=== PATIENT | male | born 1945 | race Caucasian/White ===

== ENCOUNTER 2018-10-26 17:30 | Emergency (ER) | payer MEDICARE, OTHER ==
[2018-10-26] MEDS ORDERED: Diltiazem 50 MG/10 ML SDV IVPUSH ONE ×2 (19:36→20:08)
--- NOTE | 2018-10-26 19:36 | EDM.PDOC ---
ED HPI GENERAL MEDICAL PROBLEM - General Chief Complaint: Respiratory Problem Stated Complaint: COUGHING AND RAPID HEART BEAT Time Seen by Provider: 10/26/18 19:20 Source of Information: Reports: Patient, RN Notes Reviewed - History of Present Illness INITIAL COMMENTS - FREE TEXT/NARRATIVE: 73 year old male had cough darrell more than 2 wks ago, treated with amoxicillin, finished that 3 days ago, he started getting ill again 2 days ago with increased frequent dry nonprod cough, chills, Zhou, increased nasal darrell. Was seen at [facility] today, CXR is reported to have been OK but was in a fib, fast heart rate, but I am also told did not take his rate control medication today. Multiple other family members are either currently ill with cough congestion or sore throat or have been ill in the past week or so. His is currently also ill with symptoms that just started 2 or 3 days ago. - Related Data Allergies Allergy/AdvReac Type Severity Reaction Status Date / Time No Known Allergies Allergy Verified 03/05/15 15:58 Home Meds: Home Meds amLODIPine [Norvasc] 5 mg PO DAILY 03/05/15 [History] Carvedilol [Coreg] 6.25 mg PO BID #60 tablet 03/07/15 [Rx] Aspirin 1 tab PO DAILY 10/26/18 [History] Past Medical History Cardiovascular History: Reports: Afib, Hypertension Other Gastrointestinal History: abdominal pain-chronic; Social & Family History - Family History Family Medical History: Noncontributory - Tobacco Use Smoking Status *Q: Unknown Ever Smoked - Caffeine Use Caffeine Use: Reports: Other - Recreational Drug Use Recreational Drug Use: No ED ROS GENERAL - Review of Systems Review Of Systems: See Below Constitutional: Reports: Chills. Denies: Fever HEENT: Reports: Rhinitis, Sinus Problem (Sinus congestion), Throat Pain Respiratory: Reports: Cough. Denies: Shortness of Breath (Mild), Wheezing Cardiovascular: Reports: Chest Pain (Frequent nonproductive with coughing) GI/Abdominal: Denies: Abdominal Pain, Nausea, Vomiting Musculoskeletal: Denies: Neck Pain, Shoulder Pain, Arm Pain Skin: Reports: No Symptoms Neurological: Reports: Headache (Mild). Denies: Numbness, Tingling, Trouble Speaking, Difficulty Walking, Weakness ED EXAM, GENERAL - Physical Exam Exam: See Below General Appearance: Alert, Other (Frequent nonproductive cough) Eye Exam: Bilateral Eye: PERRL Throat/Mouth: Normal Inspection Head: Atraumatic. No: Facial Swelling Neck: Supple, Full Range of Motion Respiratory/Chest: No Respiratory Distress, Lungs Clear, Normal Breath Sounds Cardiovascular: Tachycardia, Irregularly Irregular GI/Abdominal: Soft, Non-Tender Extremities: No: Pedal Edema, Leg Pain Neurological: Alert, Oriented, No Motor/Sensory Deficits Skin Exam: Warm, Dry, Normal Color, No Rash EKG INTERPRETATION EKG Date: 10/26/18 Rhythm: A-Fib Rate (Beats/Min): 141 [place]: Normal P-Wave: Absent QRS: Normal ST-T: Normal Course - Vital Signs Last Recorded V/S: Last Vital Signs Temp 98.6 F 10/26/18 18:01 Pulse 127 H 10/26/18 20:18 Resp 22 H 10/26/18 19:56 BP 156/102 H 10/26/18 20:18 Pulse Ox 94 L 10/26/18 19:56 - Orders/Labs/Meds Orders: Active Orders 24 hr Category Date Time Status EKG 12 Lead [EKG Documentation Completion] [RC] STAT Care 10/26/18 18:06 Active Labs: Laboratory Tests 10/26/18 10/26/18 Range/Units 18:16 18:16 WBC 8.05 (4.23-9.07) K/mm3 RBC 4.51 L (4.63-6.08) M/mm3 Hgb 14.2 (13.7-17.5) gm/L Hct 41.0 (40.1-51.0) % MCV 90.9 (79.0-92.2) fl MCH 31.5 (25.7-32.2) pg MCHC 34.6 (32.2-35.5) g/dl RDW Std Deviation 41.4 (35.1-43.9) fL Plt Count 171 (163-337) K/mm3 MPV 9.1 L (9.4-12.3) fl Neut % (Auto) 69.6 H (34.0-67.9) % Lymph % (Auto) 11.2 L (21.8-53.1) % [place] % (Auto) 16.9 H (5.3-12.2) % Eos % (Auto) 1.6 (0.8-7.0) Baso % (Auto) 0.6 (0.1-1.2) % Neut # (Auto) 5.60 H (1.78-5.38) K/mm3 Lymph # (Auto) 0.90 L (1.32-3.57) K/mm3 [place] # (Auto) 1.36 H (0.30-0.82) K/mm3 Eos # (Auto) 0.13 (0.04-0.54) K/mm3 Baso # (Auto) 0.05 (0.01-0.08) K/mm3 Manual Slide Review Normal smear Sodium 136 (136-145) mEq/L Potassium 3.4 L (3.5-5.1) mEq/L Chloride 101 (98-107) mEq/L Carbon Dioxide 25 (21-32) mEq/L Anion Gap 13.4 (5-15) BUN 13 (7-18) mg/dL Creatinine 0.9 (0.7-1.3) mg/dL Est Cr Clr Drug Dosing 80.15 mL/min Estimated GFR (MDRD) > 60 (>60) mL/min BUN/Creatinine Ratio 14.4 (14-18) Glucose 115 (83-115) mg/dL Calcium 8.3 L (8.5-10.1) mg/dL Total Bilirubin 1.1 H (0.2-1.0) mg/dL AST 35 (15-37) U/L ALT 28 (16-63) U/L Alkaline Phosphatase 52 (46-116) U/L Troponin I 0.023 (0.00-0.056) ng/mL Total Protein 7.8 (6.4-8.2) g/dl Albumin 3.5 (3.4-5.0) g/dl Globulin 4.3 gm/dL Albumin/Globulin Ratio 0.8 L (1-2) Meds: Medications Discontinued Medications Generic Name Dose Route Start Last Admin Trade Name Freq PRN Reason Stop Dose Admin Acetaminophen 975 mg 10/26/18 20:08 10/26/18 20:13 Tylenol PO 10/26/18 20:09 975 mg NOW ONE Administration Diltiazem HCl 20 mg 10/26/18 19:36 10/26/18 19:44 Cardizem IVPUSH 02/26/19 19:37 20 mg ONETIME ONE Administration Diltiazem HCl 20 mg 10/26/18 20:08 10/26/18 20:13 Cardizem IVPUSH 10/26/18 20:09 20 mg ONETIME ONE Administration - Re-Assessments/Exams Free Text/Narrative Re-Assessment/Exam: 10/27/18 05:25. Patient's influenza screen was negative. Labs were relatively normal. Troponin 0.0-3. He was seen in [facility] earlier today. Chest x-ray there was negative, we do have that report read by radiologist. 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 Not take his rate control medication yet today. Repeat was 135 at time of triage, in the low 120s at the time that I did see him. He him diltiazem 20 mg IV did bring his rate down with still running 110-120 so we did give a further 20 mg IV and that his rate down closer to the 100 range. Blood pressure remained good. He does take aspirin but no other blood thinner type therapy. He is medically okay to go home. His concern is the cough. I have prescribed some Phenergan with codeine that he can take to try help make that more tolerable to help him better rest. I've advised that he take his metoprolol when he does get home and that will help give him further rate control. Discharge instructions as documented. Departure - Departure Time of Disposition: 19:45 Disposition: Home, Self-Care 01 Condition: Fair Clinical Impression: Viral URI with cough - Discharge Information Instructions: Viral Respiratory Infection, [id number] Referrals: PCP,None [Primary Care Provider] - Forms: ED Department Discharge Additional Instructions: viral upper resp. infection, You have caught a new infection on top of what you had 2 wks ago, vaporizer or steam as needed. drink plenty of water to maintain hydration, tylenol 3 to 4 times daily, if needed for fever or discomfort, phenergan cough medication 2 tsp q 4 to 6 hr as needed for severe cough, take your coreg and norvasc tonight when you get home. Follow up [facility] tomorrow or for recheck. Continue daily aspirin, consider more powerful blood thinner if you remain in a Fib. - My Orders Last 24 Hours: My Active Orders 10/26/18 18:06 EKG 12 Lead [EKG Documentation Completion] [RC] STAT - Assessment/Plan Last 24 Hours: My Active Orders 10/26/18 18:06 EKG 12 Lead [EKG Documentation Completion] [RC] STAT
[2018-10-26] MEDS ORDERED: Acetaminophen 325 MG Tab PO ONE (20:08)
[2018-10-26 20:18] VITALS: BP 156/102
== END 2018-10-26 20:38 | disposition home or self-care (01) ==
LOC: JD.ED 17:30
DX: J06.9 Acute upper respiratory infection, unspecified (principal); I10 Essential (primary) hypertension; I48.91 Unspecified atrial fibrillation
CPT/HCPCS: 36415; 71046; 80053; 84484; 85025; 87804; 93005; 96374; 99285; A9270; J3490; 93010; 99284

== ENCOUNTER 2020-03-16 11:51 | Emergency (ER) | payer MEDICARE, OTHER ==
[2020-03-16 12:01] VITALS: PULSE 89
[2020-03-16] MEDS ORDERED: Sodium Chloride 0.9% 1,000 ML IV ONE (12:24)
[2020-03-16] MEDS ORDERED: Sodium Chloride 0.9% 10 ML Syringe FLUSH PRN (12:24)
[2020-03-16] MEDS ORDERED: Metoclopramide 10 MG/2 ML SDV IVPUSH ONE (12:24)
[2020-03-16] MEDS ORDERED: diphenhydrAMINE 50 MG/ML SDV IVPUSH ONE (12:24)
[2020-03-16] MEDS ORDERED: Ketorolac 30 MG/ML SDV IVPUSH ONE (12:24)
--- NOTE | 2020-03-16 12:32 | EDM.PDOC ---
ED HPI GENERAL MEDICAL PROBLEM - General Chief Complaint: Headache Stated Complaint: HEADACHE X4 DAYS Time Seen by Provider: 03/16/20 11:59 Source of Information: Reports: Patient, Family (), RN Notes Reviewed History Limitations: Reports: No Limitations - History of Present Illness INITIAL COMMENTS - FREE TEXT/NARRATIVE: Patient is a 74-year-old male who presents to the ED for evaluation of a right- sided temporal headache. Patient states that he has had this headach since Thursday. He has been trying aspirin, ibuprofen, and Aleve at home with his last dose of Aleve being at around 8 AM this morning.e patient states that he used to get headaches when he was younger, but has not had a bad headache in quite some time. He notes that the pain is on the right hemisphere of his face, mostly behind his eye. He does note that the other day he as well, he was having some right neck muscle stiffness, and also has been having some increased blood pressure readings at home. notes that his systolic blood pressures been in the 140s to 150s, but his diastolic has been in the upper 90s to low 100s. Patient does take amlodipine and Coreg for blood pressure issues, and multiple other vitamins. Otherwise he has not had any recent change in his medications. Patient notes that he has been staying hydrated and eating okay. He states that he is never had a headache before like this. He further denies any fever/chills, cough/shortness of breath, nausea/vomiting/diarrhea. He has not been around any known sick contacts. He further denies any blurry vision/double vision, or any light or sound sensitivity with this as well. Right Headache Pain Score (Numeric/FACES): 9 - Related Data Allergies Allergy/AdvReac Type Severity Reaction Status Date / Time No Known Allergies Allergy Verified 03/16/20 12:01 Home Meds: Home Meds amLODIPine [Norvasc] 5 mg PO DAILY 03/05/15 [History] Carvedilol [Coreg] 6.25 mg PO BID #60 tablet 03/07/15 [Rx] Aspirin 81 mg PO DAILY 10/26/18 [History] Cod Liver Oil 1 cap PO DAILY 03/16/20 [History] Magnesium 600 mg PO DAILY 03/16/20 [History] Naproxen [Naprosyn] 500 mg PO Q12HR #20 tab 03/16/20 [Rx] Orphenadrine [Norflex] 100 mg PO BID PRN #20 tab 03/16/20 [Rx] Selenium 1 cap PO DAILY 03/16/20 [History] Ubidecarenone [Co Q-10] 300 mg PO DAILY 03/16/20 [History] Vitamin A 1 cap PO DAILY 03/16/20 [History] Vitamin B Complex 125 mg PO DAILY 03/16/20 [History] Vitamin E 1,000 units PO DAILY 03/16/20 [History] Zinc 50 mg PO DAILY 03/16/20 [History] Past Medical History Cardiovascular History: Reports: Afib, Hypertension Gastrointestinal History: Reports: Other (See Below) Other Gastrointestinal History: abdominal pain-chronic; Neurological History: Reports: Headaches, Chronic Endocrine/Metabolic History: Reports: Other (See Below) Other Endocrine/Metabolic History: pre diabetic - Past Surgical History HEENT Surgical History: Reports: Cataract Surgery, Tonsillectomy GI Surgical History: Reports: Appendectomy Social & Family History - Family History Family Medical History: Noncontributory - Tobacco Use Smoking Status *Q: Never Smoker - Caffeine Use Caffeine Use: Reports: None - Recreational Drug Use Recreational Drug Use: No ED ROS GENERAL - Review of Systems Review Of Systems: Comprehensive ROS is negative, except as noted in HPI. - Physical Exam Exam: See Below Exam Limited By: No Limitations General Appearance: Alert, WD/WN, No Apparent Distress Eye Exam: Bilateral Eye: EOMI, Normal Inspection, PERRL Ears: Normal External Exam Nose: Normal Inspection Throat/Mouth: Normal Inspection, Normal Lips, Normal Teeth, Normal Gums, Normal Oropharynx, Normal Voice, No Airway Compromise Head Exam: Atraumatic, Normocephalic Neck: Normal Inspection, Supple, Full Range of Motion, Tender Lateral (there seems to be some muscle tightness in the R posterior neck area, states that the headache worsens when he turns head to the right only) Respiratory/Chest: No Respiratory Distress, Lungs Clear, Normal Breath Sounds, No Accessory Muscle Use, Chest Non-Tender Cardiovascular: Normal Peripheral Pulses, Regular Rate, Rhythm, No Murmur GI/Abdominal: Normal Bowel Sounds, Soft, Non-Tender, No Distention, No Mass Neuro Exam (Abbreviated): Alert, Oriented, Normal Cognition, No Motor/Sensory Deficits Extremities: Normal Inspection, Normal Capillary Refill Psychiatric: Normal Affect, Normal Mood Skin Exam: Warm, Dry, Intact, Normal Color, No Rash Course - Vital Signs Last Recorded V/S: Last Vital Signs Temp 97.5 F 03/16/20 11:58 Pulse 89 03/16/20 11:58 Resp 18 03/16/20 11:58 BP 136/88 03/16/20 13:30 Pulse Ox 94 L 03/16/20 11:58 - Orders/Labs/Meds Orders: Active Orders 24 hr Category Date Time Status Peripheral IV Care [RC] . DIRECTED Care 03/16/20 12:24 Active Sodium Chloride 0.9% [Saline Flush] Med 03/16/20 12:24 Active 10 ml FLUSH ASDIRECTED PRN Peripheral IV Insertion Adult [OM.PC] Routine Oth 03/16/20 12:24 Ordered Medication Orders Sodium Chloride (Saline Flush) 10 ml FLUSH ASDIRECTED PRN PRN Reason: Keep Vein Open Last Admin: 03/16/20 12:36 Dose: 10 ml Documented by: MASTER Labs: Laboratory Tests 03/16/20 03/16/20 Range/Units 12:30 12:30 WBC 7.87 (4.23-9.07) K/mm3 RBC 4.48 L (4.63-6.08) M/mm3 Hgb 14.2 (13.7-17.5) gm/dl Hct 41.6 (40.1-51.0) % MCV 92.9 H (79.0-92.2) fl MCH 31.7 (25.7-32.2) pg MCHC 34.1 (32.2-35.5) g/dl RDW Std Deviation 43.4 (35.1-43.9) fL Plt Count 168 (163-337) K/mm3 MPV 9.5 (9.4-12.3) fl Neut % (Auto) 63.0 (34.0-67.9) % Lymph % (Auto) 21.6 L (21.8-53.1) % [place] % (Auto) 13.0 H (5.3-12.2) % Eos % (Auto) 1.8 (0.8-7.0) Baso % (Auto) 0.5 (0.1-1.2) % Neut # (Auto) 4.96 (1.78-5.38) K/mm3 Lymph # (Auto) 1.70 (1.32-3.57) K/mm3 [place] # (Auto) 1.02 H (0.30-0.82) K/mm3 Eos # (Auto) 0.14 (0.04-0.54) K/mm3 Baso # (Auto) 0.04 (0.01-0.08) K/mm3 Sodium 143 (136-145) mEq/L Potassium 4.0 (3.5-5.1) mEq/L Chloride 106 (98-107) mEq/L Carbon Dioxide 27 (21-32) mEq/L Anion Gap 14.0 (5-15) BUN 15 (7-18) mg/dL Creatinine 0.9 (0.7-1.3) mg/dL Est Cr Clr Drug Dosing 81.19 mL/min Estimated GFR (MDRD) > 60 (>60) mL/min BUN/Creatinine Ratio 16.7 (14-18) Glucose 252 H (83-115) mg/dL Calcium 8.7 (8.5-10.1) mg/dL Total Bilirubin 0.7 (0.2-1.0) mg/dL AST 36 (15-37) U/L ALT 24 (16-63) U/L Alkaline Phosphatase 57 (46-116) U/L Total Protein 7.4 (6.4-8.2) g/dl Albumin 3.2 L (3.4-5.0) g/dl Globulin 4.2 gm/dL Albumin/Globulin Ratio 0.8 L (1-2) Meds: Medications Generic Name Dose Route Start Last Admin Trade Name Freq PRN Reason Stop Dose Admin Sodium Chloride 10 ml 03/16/20 12:24 03/16/20 12:36 Saline Flush FLUSH 10 ml ASDIRECTED PRN Administration Keep Vein Open Discontinued Medications Generic Name Dose Route Start Last Admin Trade Name Freq PRN Reason Stop Dose Admin Diphenhydramine HCl 25 mg 03/16/20 12:24 03/16/20 12:34 Benadryl IVPUSH 03/16/20 12:25 25 mg ONETIME ONE Administration Sodium Chloride 1,000 mls @ 999 mls/hr 03/16/20 12:24 03/16/20 12:39 Normal Saline IV 03/16/20 13:24 999 mls/hr ASDIRECTED ONE Administration Ketorolac Tromethamine 30 mg 03/16/20 12:24 03/16/20 12:36 Toradol IVPUSH 03/16/20 12:25 30 mg ONETIME ONE Administration Metoclopramide HCl 10 mg 03/16/20 12:24 03/16/20 12:36 Reglan IVPUSH 03/16/20 12:25 10 mg ONETIME ONE Administration - Re-Assessments/Exams Free Text/Narrative Re-Assessment/Exam: 03/16/20 12:31 Patient presents to the ED for evaluation of his right-sided headache. Suspect may be more tension headache or blood pressure related. Will monitor blood pressure in the ER. His blood pressure after he had been sitting in the ER for a little while, is 147/98, which is essentially normal. However will get CBC, CMP, and given some medications to help relieve the headache see if this helps, along with some IV fluids. Will entertain imaging if the headache does not seem to relent with the medications. 03/16/20 13:41 Laboratory evaluation demonstrates no focal abnormalities except the patient's blood sugar is a little bit elevated at 252. Patient is feeling a little bit better, states that his headache has relented. I do again believe this is more musculoskeletal in etiology, but the family and patient are requesting a head CT to be done to rule out further abnormalities. I did go over the risks/benefits ratio with the family and they would wish to proceed. I did order this at this time. 03/16/20 14:[address] has been performed, there are no acute abnormalities, there is chronic left-sided maxillary sinus issues. Will make the patient and aware of this, will discharge home with general recommendations. Departure - Departure Time of Disposition: 13:46 Disposition: Home, Self-Care 01 Condition: Good Clinical Impression: Tension-type headache, Elevated blood pressure reading in office with diagnosis of hypertension, Elevated blood sugar level Strain of neck muscle Qualifiers: Encounter type: initial encounter Qualified Code(s): S16.1XXA - Strain of muscle, fascia and tendon at neck level, initial encounter - Discharge Information *PRESCRIPTION DRUG MONITORING PROGRAM REVIEWED*: No *COPY OF PRESCRIPTION DRUG MONITORING REPORT IN PATIENT MICHAEL: No Prescriptions: Orphenadrine [Norflex] 100 mg PO BID PRN #20 tab PRN Reason: Spasms Instructions: Preventing Type 2 Diabetes Mellitus, Tension Headache, Adult, [id number] Referrals: PCP,None [Primary Care Provider] - Forms: ED Department Discharge Additional Instructions: You were evaluated in the ED for your headache. You were given a combination of medications and IV fluid for management. This did seem to provide you pretty good relief of your symptoms. You did also have a head CT performed at today's visit, and this was within normal limits. Recommend that you go home and rest in a quiet, darkened room. Try also to keep well hydrated. Your blood pressure readings did return to within normal limits while in the ER, please continue to monitor these and discuss with your regular provider about further management. Recommend that you keep tabs on your blood sugar as well, as it was a little elevated at today's visit. You were given a handout on how to try to prevent Diabetes. You were given a muscle relaxer for suspected neck muscle strain that would be the cause of your ongoing headache. Please take as directed, along with 1 tab Naprosyn Q12H. Please return to the ED if your symptoms should change or worsen. Sepsis Event Note (ED) - Evaluation Sepsis Screening Result: No Definite Risk - Focused Exam Vital Signs: Vital Signs Temp Pulse Resp BP Pulse Ox 03/16/20 13:30 136/88 03/16/20 11:58 97.5 F 89 18 169/101 H 94 L - My Orders Last 24 Hours: My Active Orders 03/16/20 12:24 Peripheral IV Care [RC] . DIRECTED Sodium Chloride 0.9% [Saline Flush] 10 ml FLUSH ASDIRECTED PRN Peripheral IV Insertion Adult [OM.PC] Routine - Assessment/Plan Last 24 Hours: My Active Orders 03/16/20 12:24 Peripheral IV Care [RC] . DIRECTED Sodium Chloride 0.9% [Saline Flush] 10 ml FLUSH ASDIRECTED PRN Peripheral IV Insertion Adult [OM.PC] Routine
[2020-03-16 13:41] VITALS: BP 136/88
--- NOTE | 2020-03-16 14:22 | CT ---
Head CT Technique: Multiple axial sections through the brain were obtained. Intervenous contrast was not utilized. Comparison: No prior intracranial imaging is available. Findings: Ventricles along with basal cisterns and sulci over the convexities are within normal limits for the patient's age. Opacified left maxillary sinus is seen. Other visualized paranasal sinuses are clear. Bone window settings were reviewed which shows no acute calvarial abnormality. Visualized mastoid sinuses show nothing acute. Impression: 1. Nothing acute is appreciated on noncontrast head CT exam. 2. Opacified left maxillary sinus which is most likely chronic. Diagnostic code #2 This report was dictated in MDT
== END 2020-03-16 14:39 | disposition home or self-care (01) ==
LOC: JD.ED 11:51
DX: S16.1XXA Strain of muscle, fascia and tendon at neck level, initial encounter (principal); G44.209 Tension-type headache, unspecified, not intractable; I10 Essential (primary) hypertension; R73.9 Hyperglycemia, unspecified; I48.91 Unspecified atrial fibrillation; Z79.82 Long term (current) use of aspirin; Z79.899 Other long term (current) drug therapy; X58.XXXA Exposure to other specified factors, initial encounter
CPT/HCPCS: 36415; 70450; 80053; 85025; 96374; 96375; 99284; J1200; J1885; J2765; J7030

== ENCOUNTER 2020-06-01 09:15 | Emergency (ER) | payer MEDICARE, OTHER ==
--- NOTE | 2020-06-01 09:38 | EDM.PDOC ---
ED HPI GENERAL MEDICAL PROBLEM - General Chief Complaint: Abdominal Pain Stated Complaint: RT SIDE PAIN Time Seen by Provider: 06/01/20 09:31 Source of Information: Reports: Patient History Limitations: Reports: No Limitations - History of Present Illness INITIAL COMMENTS - FREE TEXT/NARRATIVE: 74-year-old male presents to the ED with complaints of right sided abdominal pain for the last 2 days. No known injuries. Pain is made worse by deep breathing coughing and certain movements. He is better if he lies perfectly still. States bowel movements have been normal. No diarrhea. He has had previous laparoscopic appendectomy 20 years ago. He developed umbilical hernia superior to the laparoscopic wounds within the year after surgery. Does not feel distended or bloated. He had a heating pad on his abdomen most of last night to get a bit of sleep. Pain occasionally is very sharp and stabbing. Associated nausea vomiting fever or chills. Reports she is been coughing for several weeks. He coughs hard enough that he nearly vomits at times. This would be a reason for acute abdominal wall strain in the external oblique muscles. Onset: Gradual Onset Date: 05/30/20 Duration: Day(s):, Constant, Getting Worse (Perhaps a little worse now than it was but yet 2 days ago.) Location: Reports: Abdomen (Lateral mid abdomen. Patient is able to localize it very well.) Quality: Reports: Ache, Sharp, Stabbing Severity: Moderate Improves with: Reports: Rest Worsens with: Reports: Movement (Pain is made worse by movement coughing deep breathing or sneezing.) Context: Denies: Activity, Exercise, Lifting, Sick Contact, Trauma, Other Associated Symptoms: Reports: Malaise. Denies: Confusion, Fever/Chills, Headaches, Loss of Appetite, Nausea/Vomiting, Rash, Seizure (Not sleeping.), Shortness of Breath, Syncope, Weakness Treatments [employer]: Reports: Other (see below) (None.) Right Abdominal Pain Score (Numeric/FACES): 10 - Related Data Allergies Allergy/AdvReac Type Severity Reaction Status Date / Time amoxicillin [From Augmentin] Allergy Severe Other Verified 06/01/20 09:31 clavulanic acid Allergy Severe Other Verified 06/01/20 09:31 [From Augmentin] Home Meds: Home Meds amLODIPine [Norvasc] 5 mg PO DAILY 07/06/15 [History] Carvedilol [Coreg] 6.25 mg PO BID #60 tablet 03/07/15 [Rx] Aspirin 81 mg PO DAILY 10/26/18 [History] Cod Liver Oil 1 cap PO DAILY 03/16/20 [History] Magnesium 600 mg PO DAILY 03/16/20 [History] Naproxen [Naprosyn] 500 mg PO Q12HR #20 tab 03/16/20 [Rx] Orphenadrine [Norflex] 100 mg PO BID PRN #20 tab 03/16/20 [Rx] Selenium 1 cap PO DAILY 03/16/20 [History] Ubidecarenone [Co Q-10] 300 mg PO DAILY 03/16/20 [History] Vitamin A 1 cap PO DAILY 03/16/20 [History] Vitamin B Complex 125 mg PO DAILY 03/16/20 [History] Vitamin E 1,000 units PO DAILY 03/16/20 [History] Zinc 50 mg PO DAILY 03/16/20 [History] Hydrocodone/Chlorphen P-Stirex [Hydrocodone-Chlorphen ER Susp] 5 ml PO Q12H PRN #60 ml 06/01/20 [Rx] levoFLOXacin [Levaquin] 500 mg PO DAILY #8 tab 06/01/20 [Rx] oxyCODONE HCl/Acetaminophen [Percocet 5-325 mg Tablet] 1 - 2 each PO Q6H PRN #16 tablet 06/01/20 [Rx] Past Medical History Cardiovascular History: Reports: Afib (Rate controlled with carvedilol. Not on anticoagulants.), Hypertension Gastrointestinal History: Reports: Other (See Below) Other Gastrointestinal History: abdominal pain-chronic; Neurological History: Reports: Headaches, Chronic Endocrine/Metabolic History: Reports: Other (See Below) Other Endocrine/Metabolic History: pre diabetic - Past Surgical History HEENT Surgical History: Reports: Cataract Surgery, Tonsillectomy GI Surgical History: Reports: Appendectomy Social & Family History - Family History Family Medical History: Noncontributory - Caffeine Use Caffeine Use: Reports: None - Living Situation & Occupation Living situation: Reports: Occupation: Employed (Self-employed) [facility] - Review of Systems Review Of Systems: See Below Constitutional: Reports: Malaise. Denies: Fever, Chills, Weakness, Fatigue (Lack of sleep.), Decreased Appetite, Weight Loss HEENT: Reports: Glasses Respiratory: Reports: Cough. Denies: Shortness of Breath, Wheezing, Pleuritic Chest Pain, Sputum, Hemoptysis (Occasional nonproductive cough) Cardiovascular: Reports: Blood Pressure Problem, Palpitations (Chronic atrial fib). Denies: Chest Pain, Claudication, Dyspnea on Exertion, Edema, Lightheadedness, Orthopnea (Chronic hypertension) Endocrine: Reports: Fatigue GI/Abdominal: Reports: Abdominal Pain (See history of present illness.). Denies: Constipation, Diarrhea, Decreased Appetite, Distension, Flatus, Hematemesis, Nausea, Stool Incontinence, Vomiting : Reports: No Symptoms Musculoskeletal: Reports: No Symptoms Skin: Reports: No Symptoms Neurological: Reports: No Symptoms Psychiatric: Reports: No Symptoms Hematologic/Lymphatic: Reports: No Symptoms Immunologic: Reports: No Symptoms ED EXAM, GI/ABD - Physical Exam Exam: See Below Exam Limited By: No Limitations General Appearance: Alert, WD/WN, No Apparent Distress, Other (Temperature is 36.1 with a heart rate of 90. Respiratory is 18 with sats of 96% room air. BP 1 3895.) Eyes: Bilateral: Normal Appearance Throat/Mouth: Normal Inspection (No scleral icterus or blepharal pallor.), Normal Lips, Normal Oropharynx Head: Atraumatic, Normocephalic Neck: Normal Inspection, Supple, Non-Tender, Full Range of Motion. No: Lymphadenopathy (L), Lymphadenopathy (R) Respiratory/Chest: No Respiratory Distress, Lungs Clear, Normal Breath Sounds, No Accessory Muscle Use Cardiovascular: Normal Peripheral Pulses, No Edema, No Gallop, No JVD, No Murmur, No Rub, Irregularly Irregular (Heart rate is irregular irregular compatible with atrial fibrillation with a heart rate of 90/min on average.) GI/Abdominal Exam: Tender (Able to localize an area of tenderness in the mid axillary line and anterior axillary line mid abdomen just below the costal margin. Clinically the pain appears to be superficial and likely coming from the abdominal wall. Patient has 2 umbilical hernias superior to previous laparoscopic wound. They are reducible.), Abnormal Bowel Sounds (Bowel sounds are hyperactive in all 4 quadrants.), Other (It appears distended and firm.). No: Distended (No tympany on percussion.), Guarding, Rigid, Rebound Back Exam: Normal Inspection, Full Range of Motion. No: CVA Tenderness (L), CVA Tenderness (R) Extremities: Normal Inspection, Normal Range of Motion, Non-Tender, No Pedal Edema Neurological: Alert, Oriented, CN II-XII Intact, Normal Cognition Psychiatric: Normal Affect, Normal Mood Skin Exam: Warm, Dry, Intact, Normal Color, Erythema (She has mild scattered erythema right lateral abdominal wall 40s at the heating pad or overnight. Indicates that he is got some superficial mascorro to the abdominal wall. No bli sters.) Course - Vital Signs Last Recorded V/S: Last Vital Signs Temp 36.1 C 06/01/20 09:26 Pulse 90 06/01/20 09:26 Resp 18 06/01/20 09:26 BP 138/95 H 06/01/20 09:26 Pulse Ox 96 06/01/20 09:26 - Orders/Labs/Meds Orders: Active Orders 24 hr Category Date Time Status Abdomen 1V Flat [CR] Stat Exams 06/01/20 09:39 Taken Abdomen Pelvis w Cont [CT] Stat Exams 06/01/20 10:21 Taken Sodium Chloride 0.9% [Normal Saline] 1,000 ml Med 06/01/20 10:30 Active IV ASDIRECTED Sodium Chloride 0.9% [Saline Flush] Med 06/01/20 10:49 Active 10 ml FLUSH ONETIME PRN cefTRIAXone [Rocephin] 2 gm Med 06/01/20 14:15 Active Sodium Chloride 0.9% [Normal Saline] 100 ml IV Q24H Medication Orders Sodium Chloride (Normal Saline) 1,000 mls @ 150 mls/hr IV ASDIRECTED ALEJO Last Admin: 06/01/20 11:25 Dose: 150 mls/hr Documented by: PURNIMA Ceftriaxone Sodium 2 gm/ (Sodium Chloride) 100 mls @ 200 mls/hr IV Q24H ALEJO Last Admin: 06/01/20 14:15 Dose: 200 mls/hr Documented by: PURNIMA Sodium Chloride (Saline Flush) 10 ml FLUSH ONETIME PRN PRN Reason: IV FLUSH Last Admin: 06/01/20 11:40 Dose: 10 ml Documented by: BETSY Labs: Laboratory Tests 06/01/20 06/01/20 06/01/20 Range/Units 09:30 09:30 09:30 WBC 8.56 (4.23-9.07) K/mm3 RBC 4.68 (4.63-6.08) M/mm3 Hgb 14.7 (13.7-17.5) gm/dl Hct 42.8 (40.1-51.0) % MCV 91.5 (79.0-92.2) fl MCH 31.4 (25.7-32.2) pg MCHC 34.3 (32.2-35.5) g/dl RDW Std Deviation 43.6 (35.1-43.9) fL Plt Count 200 (163-337) K/mm3 MPV 9.7 (9.4-12.3) fl Neut % (Auto) 67.3 (34.0-67.9) % Lymph % (Auto) 18.7 L (21.8-53.1) % [place] % (Auto) 11.9 (5.3-12.2) % Eos % (Auto) 1.6 (0.8-7.0) Baso % (Auto) 0.4 (0.1-1.2) % Neut # (Auto) 5.76 H (1.78-5.38) K/mm3 Lymph # (Auto) 1.60 (1.32-3.57) K/mm3 [place] # (Auto) 1.02 H (0.30-0.82) K/mm3 Eos # (Auto) 0.14 (0.04-0.54) K/mm3 Baso # (Auto) 0.03 (0.01-0.08) K/mm3 Sodium 137 (136-145) mEq/L Potassium 4.1 (3.5-5.1) mEq/L Chloride 102 (98-107) mEq/L Carbon Dioxide 26 (21-32) mEq/L Anion Gap 13.1 (5-15) BUN 16 (7-18) mg/dL Creatinine 1.0 (0.7-1.3) mg/dL Est Cr Clr Drug Dosing 71.02 mL/min Estimated GFR (MDRD) > 60 (>60) mL/min BUN/Creatinine Ratio 16.0 (14-18) Glucose 163 H (83-115) mg/dL Calcium 8.6 (8.5-10.1) mg/dL Total Bilirubin 1.6 H (0.2-1.0) mg/dL AST 50 H (15-37) U/L ALT 27 (16-63) U/L Alkaline Phosphatase 59 (46-116) U/L C-Reactive Protein 2.9 H* (<1.0) mg/dL Total Protein 8.1 (6.4-8.2) g/dl Albumin 3.6 (3.4-5.0) g/dl Globulin 4.5 gm/dL Albumin/Globulin Ratio 0.8 L (1-2) Lipase 65 L (73-393) U/L Urine Color (Yellow) Urine Appearance (Clear) Urine pH (5.0-8.0) Ur Specific [place] (1.005-1.030) Urine Protein (Negative) Urine Glucose (UA) (Negative) Urine Ketones (Negative) Urine Occult Blood (Negative) Urine Nitrite (Negative) Urine Bilirubin (Negative) Urine Urobilinogen (0.2-1.0) Ur Leukocyte Esterase (Negative) 06/01/20 Range/Units 13:50 WBC (4.23-9.07) K/mm3 RBC (4.63-6.08) M/mm3 Hgb (13.7-17.5) gm/dl Hct (40.1-51.0) % MCV (79.0-92.2) fl MCH (25.7-32.2) pg MCHC (32.2-35.5) g/dl RDW Std Deviation (35.1-43.9) fL Plt Count (163-337) K/mm3 MPV (9.4-12.3) fl Neut % (Auto) (34.0-67.9) % Lymph % (Auto) (21.8-53.1) % [place] % (Auto) (5.3-12.2) % Eos % (Auto) (0.8-7.0) Baso % (Auto) (0.1-1.2) % Neut # (Auto) (1.78-5.38) K/mm3 Lymph # (Auto) (1.32-3.57) K/mm3 [place] # (Auto) (0.30-0.82) K/mm3 Eos # (Auto) (0.04-0.54) K/mm3 Baso # (Auto) (0.01-0.08) K/mm3 Sodium (136-145) mEq/L Potassium (3.5-5.1) mEq/L Chloride (98-107) mEq/L Carbon Dioxide (21-32) mEq/L Anion Gap (5-15) BUN (7-18) mg/dL Creatinine (0.7-1.3) mg/dL Est Cr Clr Drug Dosing mL/min Estimated GFR (MDRD) (>60) mL/min BUN/Creatinine Ratio (14-18) Glucose (83-115) mg/dL Calcium (8.5-10.1) mg/dL Total Bilirubin (0.2-1.0) mg/dL AST (15-37) U/L ALT (16-63) U/L Alkaline Phosphatase (46-116) U/L C-Reactive Protein (<1.0) mg/dL Total Protein (6.4-8.2) g/dl Albumin (3.4-5.0) g/dl Globulin gm/dL Albumin/Globulin Ratio (1-2) Lipase (73-393) U/L Urine Color Yellow (Yellow) Urine Appearance Clear (Clear) Urine pH 7.0 (5.0-8.0) Ur Specific [place] 1.015 (1.005-1.030) Urine Protein Negative (Negative) Urine Glucose (UA) Negative (Negative) Urine Ketones Negative (Negative) Urine Occult Blood Negative (Negative) Urine Nitrite Negative (Negative) Urine Bilirubin Negative (Negative) Urine Urobilinogen 0.2 (0.2-1.0) Ur Leukocyte Esterase Negative (Negative) Meds: Medications Generic Name Dose Route Start Last Admin Trade Name Freq PRN Reason Stop Dose Admin Sodium Chloride 1,000 mls @ 150 mls/hr 06/01/20 10:30 06/01/20 11:25 Normal Saline IV 150 mls/hr ASDIRECTED ALEJO Administration Ceftriaxone Sodium 2 gm/ 100 mls @ 200 mls/hr 06/01/20 14:15 06/01/20 14:15 Sodium Chloride IV 200 mls/hr Q24H ALEJO Administration Sodium Chloride 10 ml 06/01/20 10:49 06/01/20 11:40 Saline Flush FLUSH 10 ml ONETIME PRN Administration IV FLUSH Discontinued Medications Generic Name Dose Route Start Last Admin Trade Name Freq PRN Reason Stop Dose Admin Diatrizoate Meglum/Diatrizoate Sod 120 ml 06/01/20 10:49 06/01/20 11:39 Gastrografin 37% PO 06/01/20 10:50 120 ml ONETIME ONE Administration Hydromorphone HCl 0.5 mg 06/01/20 09:42 06/01/20 11:30 Dilaudid IVPUSH 06/01/20 09:43 Not Given ONETIME ONE Hydromorphone HCl 0.5 mg 06/01/20 15:19 06/01/20 15:26 Dilaudid IVPUSH 06/01/20 15:20 0.5 mg ONETIME ONE Administration Ceftriaxone Sodium 2 gm/ 100 mls @ 200 mls/hr 06/01/20 13:58 06/01/20 14:05 Sodium Chloride IV 06/01/20 14:27 Not Given ONETIME ONE Iopamidol 100 ml 06/01/20 10:49 06/01/20 11:39 Isovue-300 (61%) IVPUSH 06/01/20 10:50 100 ml ONETIME ONE Administration Iopamidol 50 ml 06/01/20 10:49 06/01/20 11:39 Isovue-300 (61%) IVPUSH 06/01/20 10:50 50 ml ONETIME ONE Administration Ondansetron HCl 4 mg 06/01/20 09:42 06/01/20 11:30 Zofran IVPUSH 06/01/20 09:43 Not Given ONETIME ONE Ondansetron HCl 4 mg 06/01/20 15:19 06/01/20 15:29 Zofran IVPUSH 06/01/20 15:20 4 mg ONETIME ONE Administration - Radiology Interpretation Free Text/Narrative:: 74-year-old male presents to the ED with constant right obed-abdominal pain which he is able to localize very well. No known injuries. No fever or chills. Normal bowel movements. Examination reveals a very taut abdominal wall. Able to localize tenderness very well to the mid axillary and anterior axillary line right lateral abdominal wall just below the costal margin. Pain peers to be coming from the abdominal wall on exam. Bowel sounds however much more active than normal. He has 2 umbilical hernias that are easily reducible. Pain seems to be significant as he states he hard to get any sleep last night as was quite sharp and stabbing pain all night long. He had a heating pad on the area and was able to get perhaps an hour of sleep. Examination reveals bowel sounds very active in all 4 quadrants. No tympany on percussion. Tenderness elicited with light palpation suggesting it is coming from the abdominal wall mid axillary and anterior axillary line mid abdomen. No rash to support diagnosis of shingles at this time. Story of severe paroxysmal cough for several weeks. Coughs to the point of near emesis. This would be a reason for abdominal wall muscle tear/strain. Plan routine labs will be obtained including CRP. He will be given Dilaudid 0.5 mg IV with Zofran 4 mg IV for pain relief. KUB to be obtained. - Re-Assessments/Exams Free Text/Narrative Re-Assessment/Exam: 06/01/20 10:12 KUB reveals increased stool throughout the right hemicolon and portions of the descending colon. There is an air-filled transverse colon. There is 1 loop of nonspecific dilated bowel right lower quadrant with no signs of bowel obstruction. 06/01/20 10:14 Labs reveal a normal white count at 8.56 with 67% neutrophils. Lymphocyte count is slightly low at 18.7. Hemoglobin is 14.7 with hematocrit of 42.8 and platelet count normal at 200,000. Sodium 137 potassium 4.1. Chloride 102 with a bicarb 26. Anion gap is 13.1. BUN is 16 with a creatinine of 1.0 and a GFR greater than 60. Glucose 163 calcium 8.6 total bilirubin 1.6 with an AST of 50. ALT is 27 . Alk phosphatase normal at 59. No sign of biliary tree obstruction. C-reactive protein mildly elevated at 2.9. Total protein 8.1. No signs of biliary tree obstruction. 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 06/01/20 10:24 Due to the elevated C-reactive protein and persistence of pain. I will pursue CT of the abdomen/pelvis with oral and IV contrast. 06/01/20 12:08 CT of the abdomen and pelvis has been completed with IV and oral contrast. Visualized portions of the lung bases show bibasilar atelectasis slightly worse on the right side as compared to the left. Mild cardiomegaly is present. In the abdomen the liver is mildly enlarged with evidence of fatty infiltration. An ill-defined mass in the right lobe of the liver measuring 9.3 x 8.0 cm. Is worrisome for primary hepatocellular carcinoma versus metastatic disease. Gallbladder is poorly seen and it is not well distended. It does appear to contain numerous filling defects most likely sludge vs gallstones. There appears to be an enlargement of the head of the pancreas with concern for underlying malignancy. There is also an abnormality within the third portion of the duodenum which is ill-defined. The body the pancreas is normal without evidence of acute pancreatitis. Stomach appears normal. Spleen appears normal. There is a infiltrate posterior lateral to the large bowel at the hepatic flexure. Etiology of this is unclear. Both kidneys reveal some degree of atrophy. No filling defects identified. Ureters appear to drain normally into the urinary bladder. Prostate appears to be mildly enlarged. Urinary bladder is distended. No evidence of small bowel dilatation or bowel obstruction. I will wait for the over read by radiology services. 06/01/20 13:27 [facility] urology service is now over read the CT scan. They reveal reveal bilateral posterior pleural thickening. Reflux noted to the distal esophagus. Liver shows an ill-defined hypoattenuating mass within the right lobe of the liver measuring 9.5 x 8.0 cm. Differential diagnosis includes hepatocellular carcinoma, giant hemangioma or metastatic disease. Previous MRI reports describes a hepatic mass measuring only 4.7 cm. Gallbladder wall thickening versus pericholecystic fluid identified common bile duct is borderline dilated measuring 7 to 8 mm. Internal densities within the gallbladder may represent sludge or noncalcified stones. They felt the pancreas was normal. Spleen was normal bilateral adrenal wall thickening consistent with hyperplasia. Bilateral renal cortical scarring. Bilateral renal sinus lipomatosis. No hydronephrosis. Calcifications within the midportion of the right kidney 9 mm hypoattenuating focus at the superior pole of the right kidney is too small to accurately characterize. Stomach and bowel reveal a 1.4 cm hypoattenuating mass within the third portion of the duodenum. Appendix shows no evidence of appendicitis. Intraperitoneal space is unremarkable with no free air no significant fluid collections. Vasculature unremarkable. No abdominal aortic aneurysm. Small right pericardial lymph nodes with the largest measuring 1 cm in short axis diameter. Distended urinary bladder there is thickening of the urinary bladder wall worrisome for a cystitis. Prostate gland demonstrates nonspecific parenchymal calcifications. Bone and joints unremarkable no acute fractures. Soft tissues reveal a fat-containing umbilical hernia. Bilateral small inguinal hernias containing fat no bowel within the inguinal hernias. No evidence of strangulation or obstruction. 06/01/20 13:43 I discussed the findings of the CT exam with the patient. At this time I need a urinalysis to make sure that her is no urinary tract infection. Clinically he still has pain worse with movement deep breathing and coughing suggestive of a tear of the abdominal wall musculature. However there is a mild infiltrate outside of the hepatic flexure of the colon and I am going to treat him with antibiotic Rocephin 2 g IV in the ED. As an outpatient will be treated with Levaquin 500 mg once daily for the next 8 days. This will also cover for gram-negative organisms possibly coming from the gallbladder. He requires follow-up with Dr. Lopez who he has seen remotely. He requires likely needle biopsy of lesion within the right lobe of the liver and an upper GI endoscopy to explore the inflammation or swelling within the third portion of the duodenum. Still question whether there is a mass lesion within the pancreatic head and he may require further MRI to evaluate this. This MRI was dated May 2016 and the radiologist felt that this mass in his liver represented a hemangioma at that time. This remains a possibility but has doubled in size in the last 4 years. Patient requires an ultrasound of his liver and gallbladder as an outpatient. A malignancy should have metastasized further which should be good news for the patient. He will be discharged on Levaquin 500 mg once daily for 8 days. I as going to give him pain medicine Percocet 5/325 mg 1 tablet every 4-6 hours necessary for pain relief. Departure - Departure Time of Disposition: 15:30 Disposition: Home, Self-Care 01 Condition: Fair Clinical Impression: Hypodense mass of liver Abdominal wall strain Qualifiers: Encounter type: initial encounter Qualified Code(s): S39.011A - Strain of muscle, fascia and tendon of abdomen, initial encounter Cholelithiasis Qualifiers: Cholelithiasis location: gallbladder Cholecystitis presence: without cholecystitis Biliary obstruction: without biliary obstruction Qualified Code(s): K80.20 - Calculus of gallbladder without cholecystitis without obstruction - Discharge Information *PRESCRIPTION DRUG MONITORING PROGRAM REVIEWED*: Not Applicable *COPY OF PRESCRIPTION DRUG MONITORING REPORT IN PATIENT MICHAEL: Not Applicable Prescriptions: Hydrocodone/Chlorphen P-Stirex [Hydrocodone-Chlorphen ER Susp] 5 ml PO Q12H PRN #60 ml PRN Reason: Cough relief levoFLOXacin [Levaquin] 500 mg PO DAILY #8 tab oxyCODONE HCl/Acetaminophen [Percocet 5-325 mg Tablet] 1 - 2 each PO Q6H PRN #16 tablet PRN Reason: pain relief. Instructions: Cholelithiasis, Cholelithiasis, [id number], Muscle Strain, [id number] Referrals: Yaima Wall PA-C [Primary Care Provider] - Forms: ED Department Discharge Additional Instructions: Evaluation in the emergency room today in regards to acute onset of right lateral upper abdominal pain worsened by movement , coughing etc. Examination suggest that this is most likely a muscle tear or strain of the abdominal wall muscles called the external oblique. It is likely secondary to excessive cough which you have exhibited over the last 2 to 3 months. Sent treatment with oral antibiotics have made little difference in coughing or sputum production. CT of the abdomen was performed which reveals sludge/debris possibly stones within your gallbladder with some mild surrounding inflammation. There is also a mass within the right lobe of your liver which is doubled in size over the last 4 years. It is unclear etiology. MRI was done in May 2016 identified the mass to be 4.5 cm in size. It is now increased to 9.5 x 8.0 cm. Likely has a benign etiology since it is taken so long to enlarge. However I do not have a clear picture as to what this mass is. It may be a severely enlarged blood vessel called a giant hemangioma and less likely could represent cancer with spread to the liver. This is going to require further follow-up. Please arrange an appointment to see Dr. Lopez in the clinic to arrange for further investigation of the mass in your liver. Just treatment today to be pain pill as needed for relief of abdominal wall pain. This is likely going to take about 5 more days to settle down providing you do not further strain it by coughing. Cough syrup 5 mils of Tussionex at bedtime can be repeated 12 hours later if needed for cough relief. Antibiotic is to be Levaquin 500 mg once daily starting today and to be taken for 8 days to clear up infection around the gallbladder. Sepsis Event Note (ED) - Evaluation Sepsis Screening Result: No Definite Risk - Focused Exam Vital Signs: Vital Signs Temp Pulse Resp BP Pulse Ox 06/01/20 09:26 36.1 C 90 18 138/95 H 96 - My Orders Last 24 Hours: My Active Orders 06/01/20 09:39 Abdomen 1V Flat [CR] Stat 06/01/20 10:21 Abdomen Pelvis w Cont [CT] Stat 06/01/20 10:30 Sodium Chloride 0.9% [Normal Saline] 1,000 ml IV ASDIRECTED 06/01/20 10:49 Sodium Chloride 0.9% [Saline Flush] 10 ml FLUSH ONETIME PRN 06/01/20 14:15 cefTRIAXone [Rocephin] 2 gm Sodium Chloride 0.9% [Normal Saline] 100 ml IV Q24H - Assessment/Plan Last 24 Hours: My Active Orders 06/01/20 09:39 Abdomen 1V Flat [CR] Stat 06/01/20 10:21 Abdomen Pelvis w Cont [CT] Stat 06/01/20 10:30 Sodium Chloride 0.9% [Normal Saline] 1,000 ml IV ASDIRECTED 06/01/20 10:49 Sodium Chloride 0.9% [Saline Flush] 10 ml FLUSH ONETIME PRN 06/01/20 14:15 cefTRIAXone [Rocephin] 2 gm Sodium Chloride 0.9% [Normal Saline] 100 ml IV Q24H
[2020-06-01 09:40] VITALS: BP 138/95; PULSE 90
[2020-06-01] MEDS ORDERED: Ondansetron 4 MG/2 ML SDV IVPUSH ONE ×2 (09:42→15:19)
[2020-06-01] MEDS ORDERED: HYDROmorphone 0.5 MG/0.5 ML Syringe IVPUSH ONE ×2 (09:42→15:19)
[2020-06-01] MEDS ORDERED: Sodium Chloride 0.9% 1,000 ML IV SCH (10:30)
[2020-06-01] MEDS ORDERED: Diatrizoate Meglumine/Diatrizoate Sodium 37% 120 ML Bottle PO ONE (10:49)
[2020-06-01] MEDS ORDERED: Iopamidol 612 MG/ML 50 ML SDV IVPUSH ONE (10:49)
[2020-06-01] MEDS ORDERED: Sodium Chloride 0.9% 10 ML Syringe FLUSH PRN (10:49)
[2020-06-01] MEDS ORDERED: Iopamidol 612 MG/ML 100 ML Bottle IVPUSH ONE (10:49)
[2020-06-01] MEDS ORDERED: cefTRIAXone 2 GM in Sodium Chloride 0.9% 100 ML IV ONE (13:58)
[2020-06-01] MEDS ORDERED: cefTRIAXone 2 GM in Sodium Chloride 0.9% 100 ML IV SCH (14:15)
--- NOTE | 2020-07-04 10:02 | CT ---
"PROCEDURE INFORMATION: Exam: CT Abdomen And Pelvis With Contrast Exam date and time: 06/01/2020 11:20 AM Age: 74 years old Clinical indication: Patient HX: Diffuse mid lateral RT abdominal pain x 2 days tender RT mid lateral abdominal wall suspect abdominal wall strain; Additional info: Prior mri report in images. TECHNIQUE: Imaging protocol: Computed tomography of the abdomen and pelvis with intravenous contrast. Radiation optimization: All CT scans at this facility use at least one of these dose optimization techniques: automated exposure control; mA and/or kV adjustment per patient size (includes targeted exams where dose is matched to clinical indication); or iterative reconstruction. Other contrast: Oral; COMPARISON: DX Abdomen 1V Flat 06/01/2020 9:46 AM FINDINGS: Pleural space: Bilateral posterior pleural thickening. Mediastinal space: Reflux noted to the distal esophagus. Liver: Ill-defined hypoattenuating mass within the right lobe of the liver measuring 9.5 x 8.0 cm. Differential diagnosis includes hepatocellular carcinoma, giant hemangioma, or metastatic disease. Previous MRI report describes a hepatic mass measuring only 4.7 cm. Gallbladder and bile ducts: Gallbladder wall thickening versus pericholecystic fluid. Common bile duct is borderline dilated measuring 7-8 mm. Internal densities within the gallbladder may represent sludge or noncalcified stones Pancreas: Normal. No ductal dilation. Spleen: Normal. No splenomegaly. Adrenals: Bilateral adrenal thickening consistent with hyperplasia Kidneys and ureters: Bilateral renal cortical scarring. Bilateral renal sinus lipomatosis. No hydronephrosis. Calcifications within the midportion of the right kidney 9 mm hypoattenuating focus at the superior pole of the right kidney is too small to accurately characterize. Stomach and bowel: 1.4 cm hypoattenuating mass within the 3rd portion of the duodenum. Appendix: No evidence of appendicitis. GLADIS WORTHINGTON | Final Radiology Report CONFIDENTIALITY STATEMENT This report is intended only for use by the referring physician, and only in accordance with law. If you received this in error, call [phone]. Page 2 of 2 Intraperitoneal space: Unremarkable. No free air. No significant fluid collection. Vasculature: Unremarkable. No abdominal aortic aneurysm. Lymph nodes: Small right pericardial lymph nodes with the largest measuring 1 cm in short axis diameter. Urinary bladder: Distended urinary bladder. There is thickening of the urinary bladder wall worrisome for a cystitis. Reproductive: The prostate gland demonstrates nonspecific parenchymal calcifications. Bones/joints: Unremarkable. No acute fracture. Soft tissues: There is a fat-containing umbilical hernia. Bilateral small inguinal hernias containing fat. No bowel within the inguinal hernias. No evidence of strangulation or obstruction. IMPRESSION: 1. Reflux noted to the distal esophagus. 2. Gallbladder wall thickening versus pericholecystic fluid. Recommend abdominal ultrasound for further evaluation 3. 1.4 cm hypoattenuating mass within the 3rd portion of the duodenum. 4. Ill-defined hypoattenuating mass within the right lobe of the liver measuring 9.5 x 8.0 cm. Differential diagnosis includes hepatocellular carcinoma, giant hemangioma, or metastatic disease. Previous MRI report describes a hepatic mass measuring only 4.7 cm. Recommend MRI for further evaluation. COMMENTS: Consistent with the [place]'s Incidental Findings Committee white paper (J Am Nickolas Radiol 2018): Any incidental renal lesion less than 1 cm or classified as too small to characterize, or any incidental cystic renal lesion characterized as simple- appearing, is likely benign. No follow-up imaging is recommended for these lesions per consensus recommendations based on imaging criteria. Thank you for allowing us to participate in the care of your patient. Dictated and Authenticated by: Tio Lopez MD 07/03/2020 5:43 AM Central Time ([place] & [place]) [facility]ENTERJuarez"
--- NOTE | 2020-07-09 08:50 | CR ---
PROCEDURE INFORMATION: Exam: XR Abdomen, 1 View Exam date and time: 06/01/2020 9:46 AM Age: 74 years old Clinical indication: Abdominal pain; Localized; Right TECHNIQUE: Imaging protocol: XR of the abdomen. Views: Frontal supine view of the abdomen. 1 View. COMPARISON: MR Abdomen w wo Cont 06/25/2016 8:24 AM FINDINGS: Gastrointestinal tract: There is no significant distention of the small bowel or large bowel on this current examination. Bones/joints: Unremarkable. IMPRESSION: No acute findings. Thank you for allowing us to participate in the care of your patient. Dictated and Authenticated by: Tio Lopez MD 07/03/2020 5:40 AM Central Time ([place] & [place]) ABHIJEET
== END 2020-06-01 15:43 | disposition home or self-care (01) ==
LOC: JD.ED 09:15
DX: S39.011A Strain of muscle, fascia and tendon of abdomen, initial encounter (principal); K80.20 Calculus of gallbladder without cholecystitis without obstruction; K42.9 Umbilical hernia without obstruction or gangrene; K76.89 Other specified diseases of liver; R05 Cough; I48.91 Unspecified atrial fibrillation; Z88.1 Allergy status to other antibiotic agents; Z79.82 Long term (current) use of aspirin; Z90.49 Acquired absence of other specified parts of digestive tract; Z79.899 Other long term (current) drug therapy; X58.XXXA Exposure to other specified factors, initial encounter
CPT/HCPCS: 36415; 74018; 74177; 80053; 81003; 83690; 85025; 86140; 96361; 96365; 96375; 99284; J0696; J1170; J2405; J7030; J7050; Q9963; Q9967

== ENCOUNTER 2021-02-22 17:26 | Emergency (ER) | payer MEDICARE, OTHER ==
--- NOTE | 2021-02-22 17:56 | EDM.PDOC ---
ED HPI GENERAL MEDICAL PROBLEM - General Chief Complaint: General Stated Complaint: DRAIN FLUID OFF LUNG SENT BY [facility] Time Seen by Provider: 02/22/21 17:46 - History of Present Illness INITIAL COMMENTS - FREE TEXT/NARRATIVE: 75-year-old male presents the emergency room after being sent here by the [facility] for thoracentesis. Patient has liver cancer and has elected not to have this treated. Yesterday he had a CT which showed a fairly large right-sided pleural effusion and the plan was for him to have follow-up with Dr. Galvin on as an outpatient to get this tapped. However the patient is getting a worsening cough and shortness of breath. Patient has had a thoracentesis about 15 years ago from what sounds like transient congestive heart failure his ejection fractions much better and he has not had problems with it. The patient is not having any aggressive therapy with chemo or radiation for his liver cancer. The patient also has an enlarged bladder he has declined any sort of catheter instrumentation in the past. Patient has noticed some increased distention in his abdomen. Lower Abdomen Pain Score (Numeric/FACES): 3 - Related Data Allergies Allergy/AdvReac Type Severity Reaction Status Date / Time amoxicillin [From Augmentin] Allergy Severe Other Verified 06/01/20 09:31 clavulanic acid Allergy Severe Other Verified 06/01/20 09:31 [From Augmentin] Home Meds: Home Meds amLODIPine [Norvasc] 5 mg PO DAILY 03/05/15 [History] Carvedilol [Coreg] 6.25 mg PO BID #60 tablet 03/07/15 [Rx] Aspirin 81 mg PO DAILY 10/26/18 [History] Cod Liver Oil 1 cap PO DAILY 03/16/20 [History] Magnesium 600 mg PO DAILY 03/16/20 [History] Naproxen [Naprosyn] 500 mg PO Q12HR #20 tab 03/16/20 [Rx] Orphenadrine [Norflex] 100 mg PO BID PRN #20 tab 03/16/20 [Rx] Selenium 1 cap PO DAILY 03/16/20 [History] Ubidecarenone [Co Q-10] 300 mg PO DAILY 03/16/20 [History] Vitamin A 1 cap PO DAILY 03/16/20 [History] Vitamin B Complex 125 mg PO DAILY 03/16/20 [History] Vitamin E (Dl,Tocopheryl Acet) [Vitamin E] 1,000 units PO DAILY 03/16/20 [History] Zinc 50 mg PO DAILY 03/16/20 [History] Hydrocodone/Chlorphen P-Stirex [Hydrocodone-Chlorphen ER Susp] 5 ml PO Q12H PRN #60 ml 06/01/20 [Rx] levoFLOXacin [Levaquin] 500 mg PO DAILY #8 tab 06/01/20 [Rx] oxyCODONE HCl/Acetaminophen [Percocet 5-325 mg Tablet] 1 - 2 each PO Q6H PRN #16 tablet 06/01/20 [Rx] Past Medical History Cardiovascular History: Reports: Afib (Rate controlled with carvedilol. Not on anticoagulants.), Hypertension Gastrointestinal History: Reports: Other (See Below) Other Gastrointestinal History: abdominal pain-chronic; Neurological History: Reports: Headaches, Chronic Endocrine/Metabolic History: Reports: Other (See Below) Other Endocrine/Metabolic History: pre diabetic - Past Surgical History HEENT Surgical History: Reports: Cataract Surgery, Tonsillectomy GI Surgical History: Reports: Appendectomy Social & Family History - Family History Family Medical History: No Pertinent Family History - Caffeine Use Caffeine Use: Reports: None - Living Situation & Occupation Living situation: Reports: Occupation: Employed (Self-employed) ED ROS GENERAL - Review of Systems Review Of Systems: See Below Constitutional: Reports: No Symptoms HEENT: Reports: No Symptoms Respiratory: Reports: Shortness of Breath, Cough GI/Abdominal: Reports: Other (He seems to perhaps noticed some increased distention). Denies: Constipation, Diarrhea, Nausea, Vomiting : Reports: Urinary Retention. Denies: Flank Pain, Frequency, Urgency Neurological: Reports: No Symptoms, Confusion, Dizziness Psychiatric: Reports: No Symptoms ED EXAM, GENERAL - Physical Exam Exam: See Below Exam Limited By: No Limitations General Appearance: Alert, No Apparent Distress Head: Atraumatic, Normocephalic Neck: Normal Inspection, Supple, Non-Tender, Full Range of Motion Respiratory/Chest: No Respiratory Distress, Decreased Breath Sounds (Diminished breath sounds on the right), Other (He has a frequent shallow cough) Cardiovascular: Regular Rate, Rhythm, No Murmur. No: No Edema GI/Abdominal: Normal Bowel Sounds, Non-Tender, Other (Mild distention) Back Exam: Normal Inspection. No: CVA Tenderness (L), CVA Tenderness (R) Extremities: Pedal Edema (2+ pitting edema in lower extremities) Neurological: Alert, Oriented, Normal Cognition Course - Vital Signs Last Recorded V/S: Last Vital Signs Temp 36.5 C 02/22/21 17:38 Pulse 78 02/22/21 17:38 Resp 20 02/22/21 17:38 BP 164/99 H 02/22/21 17:38 Pulse Ox 96 02/22/21 17:38 - Orders/Labs/Meds Orders: Active Orders 24 hr Category Date Time Status Bladder Scan [RC] ASDIRECTED Care 02/22/21 18:39 Active Chest 1V Frontal [CR] Stat Exams 02/22/21 18:20 Taken Chest 1V Frontal [CR] Stat Exams 02/22/21 19:32 Taken AMYLASE,BODY FLUID [BF] Stat Lab 02/22/21 18:57 Ordered CELL COUNT,BODY FLUID [BF] Stat Lab 02/22/21 18:57 Ordered GLUCOSE,BODY FLUID [BF] Stat Lab 02/22/21 18:57 Ordered LACTATE DEHYDROGENASE,BODY FL [BF] Stat Lab 02/22/21 18:57 Ordered PH,BODY FLUID [BF] Stat Lab 02/22/21 18:57 Ordered PROTEIN,BODY FLUID [BF] Stat Lab 02/22/21 18:57 Ordered Meds: Medications Discontinued Medications Generic Name Dose Route Start Last Admin Trade Name Fabian PRN Reason Stop Dose Admin Lidocaine/Epinephrine Confirm 02/22/21 19:06 Lidocaine 1% With Epinephrine 1:100,000 10 Ml Mdv Administered 02/22/21 19:07 Dose 10 ml .ROUTE .STK-MED ONE - Re-Assessments/Exams Free Text/Narrative Re-Assessment/Exam: 02/22/21 18:27 I was able to access the patient's labs from 2 days ago and his chest abdomen pelvis CT from yesterday does indeed have a large right-sided pleural effusion urinary bladder is quite enlarged as well. I discussed my findings with the patient and he will allow us to do a bladder scan and consider in and out catheterization see if this might help him a little bit. Case was discussed with the on-call surgeon who does not do thoracentesis I did discuss it with Dr. Galvin who the patient was scheduled to see on Thursday who is kind enough to come in and evaluate the situation. While waiting we will check a AP chest. 02/22/21 20:01 Dr. Galvin did come in and evaluate the patient and the patient underwent a successful thoracentesis pulling off approximately 2.5 L. Follow-up x-ray shows a well-expanded right lung with no evidence of pneumothorax. Fluid chemistries and cytology has been ordered. The patient is doing well at this time will discharge home. At this time the patient is not interested in pursuing urinary bladder catheterization bladder scan showed more than 850 cc however his renal function looks reasonable Departure - Departure Time of Disposition: 20:02 Disposition: Home, Self-Care 01 Clinical Impression: Pleural effusion - Discharge Information Instructions: Pleural Effusion Referrals: Yaima Wall PA-C [Primary Care Provider] - Forms: ED Department Discharge Additional Instructions: Return to the emergency room with any questions problems or worsening symptoms. Follow-up in the clinic early next week for recheck. It may take the better p art of next week to get all the fluid studies back, however, the results of everything should go to the clinic in [place]. Sepsis Event Note (ED) - Evaluation Sepsis Screening Result: No Definite Risk - Focused Exam Vital Signs: Vital Signs Temp Pulse Resp BP Pulse Ox 02/22/21 17:38 36.5 C 78 20 164/99 H 96 - My Orders Last 24 Hours: My Active Orders 02/22/21 18:20 Chest 1V Frontal [CR] Stat 02/22/21 18:39 Bladder Scan [RC] ASDIRECTED 02/22/21 18:57 AMYLASE,BODY FLUID [BF] Stat CELL COUNT,BODY FLUID [BF] Stat GLUCOSE,BODY FLUID [BF] Stat LACTATE DEHYDROGENASE,BODY FL [BF] Stat PH,BODY FLUID [BF] Stat PROTEIN,BODY FLUID [BF] Stat 02/22/21 19:32 Chest 1V Frontal [CR] Stat - Assessment/Plan Last 24 Hours: My Active Orders 02/22/21 18:20 Chest 1V Frontal [CR] Stat 02/22/21 18:39 Bladder Scan [RC] ASDIRECTED 02/22/21 18:57 AMYLASE,BODY FLUID [BF] Stat CELL COUNT,BODY FLUID [BF] Stat GLUCOSE,BODY FLUID [BF] Stat LACTATE DEHYDROGENASE,BODY FL [BF] Stat PH,BODY FLUID [BF] Stat PROTEIN,BODY FLUID [BF] Stat 02/22/21 19:32 Chest 1V Frontal [CR] Stat
[2021-02-22] MEDS ORDERED: Lidocaine 1% with EPINEPHrine 1:100,000 10 ML MDV ONE (19:06)
[2021-02-22 20:20] VITALS: BP 135/78; PULSE 96
--- NOTE | 2021-02-22 20:24 | PROC ---
DATE OF OPERATION: 02/22/2021 SURGEON: Thuy Galvin MD PREOPERATIVE DIAGNOSIS: Large right-sided pleural effusion. POSTOPERATIVE DIAGNOSIS: Large right-sided pleural effusion. PROCEDURE: Right thoracentesis. ANESTHESIA: Local anesthetic with 1% lidocaine. COMPLICATIONS: None. FINDINGS: 2600 mL of pleural fluid drained. INDICATION AND CONSENT: Mr. Sanchez is a 75-year-old male with a known liver cancer that is not being treated per patient choice. The patient has been having slight cough and shortness of breath over the last few weeks, was evaluated at [facility] yesterday and was found to have a large right-sided pleural effusion on x-ray as well as CT scan. The patient was going to see me in clinic next week. However, his shortness of breath worsened and came to emergency department. He denies taking any anticoagulations and takes no other medications except vitamin supplements. Because of symptomatic right-sided pleural effusion, I decided to proceed with thoracentesis. The patient was placed in standing position with slight forward leaning and the ultrasound was used to find the area of deep pocket in the posterior axillary line around the 8th rib space. This area was cleaned and prepped and draped in the usual sterile fashion. Then, using the standardized thoracentesis kit, a 14-Kosovan pigtail thoracentesis catheter was placed into the pleural cavity and 2600 mL of pleural fluid was drained. The fluid appeared to be thin and dark yellow appearance. After the drainage was completed, the catheter was removed and the area was sealed with a Band-Aid. The patient tolerated the procedure well and after the procedure, followup x-ray was done and upon my review, it did not appear to have any pneumothorax or other obvious injuries. The patient to be observed for a short amount of time in the emergency department while waiting for official read of the x-ray by the radiologist. If the x-ray is normal, the patient to be allowed to return home. The patient can follow up with me as needed. The part of the fluid will be sent for cytology. MMODAL /[id number]
--- NOTE | 2021-02-22 20:26 | CR ---
Chest: Portable view of the chest was obtained labeled as S/P thoracentesis Comparison: Prior chest x-ray performed earlier on the same day (6:28 PM). Significant decreased pleural effusion on the right side is seen. Minimal blunting of both costophrenic angles are seen compatible with minimal bilateral pleural effusions. There is no pneumothorax being seen at this time. Atelectasis has significantly improved on the right side. Heart size and mediastinum are within within normal limits for portable technique. Bony structure shows nothing acute. Impression: 1. Significantly decreased pleural effusion on the right side. Significantly decreased right-sided atelectasis. 2. Very minimal bilateral pleural effusions are seen. 3. Other portions of the chest are stable. Diagnostic code #2
--- NOTE | 2021-02-22 20:33 | CR ---
Chest: Portable view of the chest was obtained. Comparison: Prior chest x-ray of 02/21/21. Moderately large right-sided pleural effusion is seen. Very minimal left-sided pleural effusion is seen with blunting of the costophrenic angle. Right upper lung and left lung are clear. Heart size is enlarged. Upper mediastinum is normal. No acute osseous abnormality is seen. Impression: 1. Moderately large right-sided pleural effusion and minimal left-sided pleural effusion. 2. Cardiomegaly. Diagnostic code #3
== END 2021-02-22 20:15 | disposition home or self-care (01) ==
LOC: JD.ED 17:26
DX: J90 Pleural effusion, not elsewhere classified (principal); R60.0 Localized edema; I10 Essential (primary) hypertension; Z79.82 Long term (current) use of aspirin; Z88.0 Allergy status to penicillin
CPT/HCPCS: 32555; 71045; 71045-26; 82150; 82945; 83615; 83986; 84157; 89050; 99284-25

== ENCOUNTER 2021-03-29 17:13 | Emergency (ER) | payer MEDICARE, OTHER ==
[2021-03-29 17:33] VITALS: BP 157/93; PULSE 93
--- NOTE | 2021-03-29 19:07 | EDM.PDOC ---
ED HPI GENERAL MEDICAL PROBLEM - General Chief Complaint: Genitourinary Problem Stated Complaint: CATHETER ISSUES Time Seen by Provider: 03/29/21 17:40 Source of Information: Reports: Patient History Limitations: Reports: No Limitations - History of Present Illness INITIAL COMMENTS - FREE TEXT/NARRATIVE: The patient presents from [facility] because his botello catheter would not drain. By the time he got here there was 900mls in his back. He said yesterday there was some blood. He has no pain, fever, chills, nausea or vomiting. Onset: Gradual Duration: Day(s): Improves with: Reports: None Worsens with: Reports: None Associated Symptoms: Reports: No Other Symptoms - Related Data Allergies Allergy/AdvReac Type Severity Reaction Status Date / Time amoxicillin [From Augmentin] Allergy Severe Other Verified 03/29/21 17:33 clavulanic acid Allergy Severe Other Verified 03/29/21 17:33 [From Augmentin] Home Meds: Home Meds amLODIPine [Norvasc] 5 mg PO DAILY 03/05/15 [History] Carvedilol [Coreg] 6.25 mg PO BID #60 tablet 03/07/15 [Rx] Aspirin 81 mg PO DAILY 10/26/18 [History] Cod Liver Oil 1 cap PO DAILY 03/16/20 [History] Magnesium 600 mg PO DAILY 03/16/20 [History] Naproxen [Naprosyn] 500 mg PO Q12HR #20 tab 03/16/20 [Rx] Orphenadrine [Norflex] 100 mg PO BID PRN #20 tab 03/16/20 [Rx] Selenium 1 cap PO DAILY 03/16/20 [History] Ubidecarenone [Co Q-10] 300 mg PO DAILY 03/16/20 [History] Vitamin A 1 cap PO DAILY 03/16/20 [History] Vitamin B Complex 125 mg PO DAILY 03/16/20 [History] Vitamin E (Dl,Tocopheryl Acet) [Vitamin E] 1,000 units PO DAILY 03/16/20 [History] Zinc 50 mg PO DAILY 03/16/20 [History] Hydrocodone/Chlorphen P-Stirex [Hydrocodone-Chlorphen ER Susp] 5 ml PO Q12H PRN #60 ml 06/01/20 [Rx] levoFLOXacin [Levaquin] 500 mg PO DAILY #8 tab 06/01/20 [Rx] oxyCODONE HCl/Acetaminophen [Percocet 5-325 mg Tablet] 1 - 2 each PO Q6H PRN #16 tablet 06/01/20 [Rx] Furosemide [Lasix] 20 mg PO DAILY #10 tab 03/29/21 [Rx] Past Medical History Cardiovascular History: Reports: Afib, Hypertension Gastrointestinal History: Reports: Other (See Below) Other Gastrointestinal History: abdominal pain-chronic; Neurological History: Reports: Headaches, Chronic Endocrine/Metabolic History: Reports: Other (See Below) Other Endocrine/Metabolic History: pre diabetic Oncologic (Cancer) History: Reports: Liver Other Oncologic History: diagnosed about 4 yrs ago - Past Surgical History HEENT Surgical History: Reports: Cataract Surgery, Tonsillectomy GI Surgical History: Reports: Appendectomy Social & Family History - Family History Family Medical History: No Pertinent Family History - Tobacco Use Tobacco Use Status *Q: Never Tobacco User Second Hand Smoke Exposure: No - Caffeine Use Caffeine Use: Reports: Coffee - Recreational Drug Use Recreational Drug Use: No - Living Situation & Occupation Living situation: Reports: Occupation: Employed (Self-employed) ED ROS GENERAL - Review of Systems Review Of Systems: See Below Constitutional: Reports: No Symptoms HEENT: Reports: No Symptoms Respiratory: Reports: No Symptoms Cardiovascular: Reports: No Symptoms Endocrine: Reports: No Symptoms GI/Abdominal: Reports: No Symptoms : Reports: Other (Botello cath would not drain) ED EXAM, RENAL/ - Physical Exam Exam: See Below Exam Limited By: No Limitations General Appearance: Alert, No Apparent Distress Ears: Normal External Exam Nose: Normal Inspection Head: Atraumatic, Normocephalic Neck: Normal Inspection Respiratory/Chest: No Respiratory Distress, Lungs Clear, Normal Breath Sounds Cardiovascular: Regular Rate, Rhythm, No Edema, No Murmur GI/Abdominal: Soft, Non-Tender, No Organomegaly, No Mass Extremities: Normal Inspection Neurological: Alert, Oriented, No Motor/Sensory Deficits Course - Vital Signs Last Recorded V/S: Last Vital Signs Temp 97.7 F 03/29/21 17:30 Pulse 93 03/29/21 17:30 Resp 16 03/29/21 17:30 BP 157/93 H 03/29/21 17:30 Pulse Ox 95 03/29/21 17:30 - Orders/Labs/Meds Labs: Laboratory Tests 03/29/21 03/29/2121 Range/Units 18:35 18:40 18:40 WBC 7.07 (4.23-9.07) K/mm3 RBC 4.02 L (4.63-6.08) M/mm3 Hgb 12.7 L (13.7-17.5) gm/dl Hct 37.5 L (40.1-51.0) % MCV 93.3 H (79.0-92.2) fl MCH 31.6 (25.7-32.2) pg MCHC 33.9 (32.2-35.5) g/dl RDW Std Deviation 43.9 (35.1-43.9) fL Plt Count 196 (163-337) K/mm3 MPV 8.7 L (9.4-12.3) fl Neut % (Auto) 61.6 (34.0-67.9) % Lymph % (Auto) 21.1 L (21.8-53.1) % [place] % (Auto) 13.2 H (5.3-12.2) % Eos % (Auto) 3.7 (0.8-7.0) Baso % (Auto) 0.4 (0.1-1.2) % Neut # (Auto) 4.36 (1.78-5.38) K/mm3 Lymph # (Auto) 1.49 (1.32-3.57) K/mm3 [place] # (Auto) 0.93 H (0.30-0.82) K/mm3 Eos # (Auto) 0.26 (0.04-0.54) K/mm3 Baso # (Auto) 0.03 (0.01-0.08) K/mm3 Sodium 140 (136-145) mEq/L Potassium 4.0 (3.5-5.1) mEq/L Chloride 104 (98-107) mEq/L Carbon Dioxide 28 (21-32) mEq/L Anion Gap 12.0 (5-15) BUN 10 (7-18) mg/dL Creatinine 1.0 (0.7-1.3) mg/dL Est Cr Clr Drug Dosing 69.91 mL/min Estimated GFR (MDRD) > 60 (>60) mL/min BUN/Creatinine Ratio 10.0 L (14-18) Glucose 193 H (70-99) mg/dL Calcium 8.6 (8.5-10.1) mg/dL Total Bilirubin 1.2 H (0.2-1.0) mg/dL AST 60 H (15-37) U/L ALT 27 (16-63) U/L Alkaline Phosphatase 125 H (46-116) U/L Total Protein 7.4 (6.4-8.2) g/dl Albumin 2.8 L (3.4-5.0) g/dl Globulin 4.6 gm/dL Albumin/Globulin Ratio 0.6 L (1-2) Urine Color [place] H (Yellow) Urine Appearance Slt cloudy H (Clear) Urine pH 6.5 (5.0-8.0) Ur Specific [place] 1.015 (1.005-1.030) Urine Protein 2+ H (Negative) Urine Glucose (UA) Negative (Negative) Urine Ketones Negative (Negative) Urine Occult Blood 3+ H (Negative) Urine Nitrite Negative (Negative) Urine Bilirubin 1+ H (Negative) Urine Urobilinogen 0.2 (0.2-1.0) Ur Leukocyte Esterase Negative (Negative) Urine RBC 30-40 H (0-5) /hpf Urine WBC 0-5 (0-5) /hpf Ur Epithelial Cells Not seen (0-5) /hpf Amorphous Sediment Many H (NOT SEEN) /hpf Urine Bacteria Few (FEW) /hpf Urine Mucus Not seen (FEW) /hpf - Re-Assessments/Exams Free Text/Narrative Re-Assessment/Exam: 03/29/21 19:06 Darker urine sample. I have ordered a UA, CBC and CMP. My nurse has changed out his bag and hose. His CBC looks good. His UA shows no UTI. 03/29/21 19:31 His creatinine looks great. 03/29/21 19:34 He has no UTI. I will discharge him home with some lasix. He has been retaining some fluid. Departure - Departure Time of Disposition: 19:35 Disposition: Home, Self-Care 01 Condition: Good Clinical Impression: Urinary retention - Discharge Information *PRESCRIPTION DRUG MONITORING PROGRAM REVIEWED*: Not Applicable *COPY OF PRESCRIPTION DRUG MONITORING REPORT IN PATIENT MICHAEL: Not Applicable Prescriptions: Furosemide [Lasix] 20 mg PO DAILY #10 tab Referrals: Yaima Wall PA-C [Primary Care Provider] - 1 Week Forms: ED Department Discharge Additional Instructions: Take your medications as prescribed. I have added lasix daily for 10 days. Follow up with Swathi within 1 week. Please return if you are worse. Sepsis Event Note (ED) - Evaluation Sepsis Screening Result: No Definite Risk - Focused Exam Vital Signs: Vital Signs Temp Pulse Resp BP Pulse Ox 03/29/21 17:30 97.7 F 93 16 157/93 H 95
== END 2021-03-29 19:50 | disposition home or self-care (01) ==
LOC: JD.ED 17:13
DX: R33.9 Retention of urine, unspecified (principal); I48.91 Unspecified atrial fibrillation; I10 Essential (primary) hypertension; Z79.82 Long term (current) use of aspirin; Z88.0 Allergy status to penicillin
CPT/HCPCS: 36415; 80053; 81001; 85025; 99283

== ENCOUNTER 2021-03-30 10:38 | Emergency (ER) | payer MEDICARE, OTHER ==
[2021-03-30] MEDS ORDERED: Lidocaine 2% Jelly 10 ML Urojet MUCMEM ONE (11:16)
--- NOTE | 2021-03-30 11:19 | EDM.PDOC ---
ED HPI GENERAL MEDICAL PROBLEM - General Chief Complaint: Genitourinary Problem Stated Complaint: CATHETER ISSUES Time Seen by Provider: 03/30/21 11:18 Source of Information: Reports: Patient, Family (spouse) History Limitations: Reports: No Limitations - History of Present Illness INITIAL COMMENTS - FREE TEXT/NARRATIVE: 75-year-old male presents to the ED in the accompaniment of his . They reside in [facility]. Chief complaint is problems with his Marquez catheter. He has had a Marquez catheter in for the almost entire month of February. Apparently he is developing a neurogenic bladder. He has gone into urinary retention on several occasions and usually just goes into the [facility] for a straight cath drainage and is then usually able to continue on. However since hospitalization he has not been able to void on his own and therefore Marquez catheter has been left in. He was here yesterday with Marquez catheter problems and no problems were identified other than perhaps plugged up tip of the Marquez catheter. Similarly this morning he states there was no urine in his urinary bag. He thought he perhaps had a little bit of urine expressed around the cath eter during a bowel movement this morning. When he arrived here there was 1200 mils of very dark almost greenish colored urine in his drainage bag. He states he had no real abdominal discomfort and does not feel any better since urinary drainage. I.e. did not feel any significant pain or cramping this morning. Yesterday he had a urinalysis performed which showed fair amount of red blood cells but no signs of infection. Last Marquez catheter placement was a 14-gauge which is a bit smaller than he has had in the past. Onset: Other ([place] problems the last few days.) Onset Date: 03/30/21 (Awoke with no urine in his drainage bag this morning. 1200 mils in the bag upon arrival in the ED.) Duration: Hour(s):, Chronic, Intermittent Location: Reports: Other (Having intermittent Marquez catheter problems) Quality: Reports: Other (No drainage into his drainage bag this morning upon awakening. However there was 1200 mils of dark green-colored urine in the bag upon arrival in the ED.) Severity: Moderate Improves with: Reports: None Worsens with: Reports: None Context: Denies: Activity, Exercise, Lifting, Sick Contact, Trauma, Other Associated Symptoms: Denies: No Other Symptoms, Confusion, Chest Pain, Cough, cough w sputum, Diaphoresis, Fever/Chills, Headaches, Loss of Appetite, Malaise, Nausea/Vomiting, Shortness of Breath, Syncope - Related Data Allergies Allergy/AdvReac Type Severity Reaction Status Date / Time amoxicillin [From Augmentin] Allergy Severe Other Verified 03/30/21 12:09 clavulanic acid Allergy Severe Other Verified 03/30/21 12:09 [From Augmentin] Home Meds: Home Meds amLODIPine [Norvasc] 5 mg PO DAILY 03/05/15 [History] Carvedilol [Coreg] 6.25 mg PO BID #60 tablet 03/07/15 [Rx] Aspirin 81 mg PO DAILY 10/26/18 [History] Cod Liver Oil 1 cap PO DAILY 03/16/20 [History] Magnesium 600 mg PO DAILY 03/16/20 [History] Naproxen [Naprosyn] 500 mg PO Q12HR #20 tab 03/16/20 [Rx] Orphenadrine [Norflex] 100 mg PO BID PRN #20 tab 03/16/20 [Rx] Selenium 1 cap PO DAILY 03/16/20 [History] Ubidecarenone [Co Q-10] 300 mg PO DAILY 03/16/20 [History] Vitamin A 1 cap PO DAILY 03/16/20 [History] Vitamin B Complex 125 mg PO DAILY 03/16/20 [History] Vitamin E (Dl,Tocopheryl Acet) [Vitamin E] 1,000 units PO DAILY 03/16/20 [History] Zinc 50 mg PO DAILY 03/16/20 [History] Hydrocodone/Chlorphen P-Stirex [Hydrocodone-Chlorphen ER Susp] 5 ml PO Q12H PRN #60 ml 06/01/20 [Rx] levoFLOXacin [Levaquin] 500 mg PO DAILY #8 tab 06/01/20 [Rx] oxyCODONE HCl/Acetaminophen [Percocet 5-325 mg Tablet] 1 - 2 each PO Q6H PRN #16 tablet 06/01/20 [Rx] Furosemide [Lasix] 20 mg PO DAILY #10 tab 03/29/21 [Rx] Past Medical History Cardiovascular History: Reports: Afib, Hypertension Gastrointestinal History: Reports: Other (See Below) Other Gastrointestinal History: abdominal pain-chronic; Neurological History: Reports: Headaches, Chronic Endocrine/Metabolic History: Reports: Other (See Below) Other Endocrine/Metabolic History: pre diabetic Oncologic (Cancer) History: Reports: Liver Other Oncologic History: diagnosed about 4 yrs ago - Past Surgical History HEENT Surgical History: Reports: Cataract Surgery, Tonsillectomy GI Surgical History: Reports: Appendectomy Social & Family History - Family History Family Medical History: No Pertinent Family History - Caffeine Use Caffeine Use: Reports: Coffee - Living Situation & Occupation Living situation: Reports: Occupation: Employed (Self-employed) ED ROS GENERAL - Review of Systems Review Of Systems: See Below Constitutional: Reports: Fatigue. Denies: Fever, Chills, Malaise, Weakness, Decreased Appetite, Weight Loss HEENT: Reports: Glasses (For reading) Respiratory: Reports: No Symptoms. Denies: Cough, Sputum Cardiovascular: Reports: Blood Pressure Problem, Dyspnea on Exertion, Edema (Chronic dependent edema both lower extremities). Denies: Chest Pain, Claudication, Lightheadedness, Orthopnea Endocrine: Reports: Fatigue GI/Abdominal: Reports: No Symptoms, Other (He had no pain associated with inability to void this morning. He has a large umbilical hernia that does not bother him.) : Reports: Other (Recurrent urinary retention due to suspect neurogenic bladder.) Musculoskeletal: Reports: Neck Pain, Back Pain Skin: Reports: No Symptoms Neurological: Denies: Confusion, Dizziness, Headache, Numbness, Seizure, Syn cope, Tingling, Difficulty Walking, Weakness Psychiatric: Reports: No Symptoms Hematologic/Lymphatic: Reports: No Symptoms Immunologic: Reports: No Symptoms ED EXAM, RENAL/ - Physical Exam Exam: See Below Exam Limited By: No Limitations General Appearance: Alert, WD/WN, No Apparent Distress, Other Respiratory/Chest: No Respiratory Distress, Lungs Clear, Normal Breath Sounds, No Accessory Muscle Use Cardiovascular: Regular Rate, Rhythm, No Gallop, No Murmur, No Rub. No: Normal Peripheral Pulses, No Edema GI/Abdominal: Normal Bowel Sounds, Soft, Non-Tender, No Organomegaly, Distended (Dull to percussion lower abdomen with no palpable urinary bladder. Mildly obese), Other (Fairly large umbilical hernia that is easily reducible and does not cause the patient have any pain.). No: Guarding, Rigid, Rebound, Tender (Male) Exam: Other (14-gauge Marquez catheter appears to be in adequate position. Currently there is 1200 mils of urine in his drainage bag.) Back Exam: Normal Inspection, Full Range of Motion. No: CVA Tenderness (L), CVA Tenderness (R) Extremities: Normal Inspection, Normal Range of Motion, Non-Tender, No Pedal Edema Neurological: Alert, Oriented, CN II-XII Intact, Normal Cognition Psychiatric: Normal Affect, Normal Mood Skin Exam: Warm, Dry, Intact, Normal Color, No Rash Course - Vital Signs Last Recorded V/S: Last Vital Signs Temp 36.6 C 03/30/21 12:02 Pulse 93 03/30/21 12:02 Resp 18 03/30/21 12:02 BP 135/87 03/30/21 12:02 Pulse Ox 96 03/30/21 12:02 - Orders/Labs/Meds Orders: Active Orders 24 hr Category Date Time Status Marquez Catheter Insertion [Insert Urinary Catheter] [OM. Care 03/30/21 11:30 O rdered PC] Q24H Meds: Medications Discontinued Medications Generic Name Dose Route Start Last Admin Trade Name Fabian PRN Reason Stop Dose Admin Levofloxacin 500 mg 03/30/21 11:31 03/30/21 11:46 Levofloxacin 250 Mg Tab PO 03/30/21 11:32 500 mg ONETIME ONE Administration Lidocaine HCl 10 ml 03/30/21 11:16 03/30/21 11:30 Lidocaine 2% Jelly 10 Ml Urojet MUCMEM 03/30/21 11:17 10 ml ONETIME ONE Administration - Radiology Interpretation Free Text/Narrative:: 75-year-old male presents to the ED with Marquez catheter problems. He woke this morning with no urine in his drainage bag. However when he arrived in the ED there was 1200 mils of urine in the bag. His catheter appears to be positional. He walked around home this morning and then decided to try and push the Marquez catheter up into the bladder further but this did not cause it to drain either. He thought he perhaps did lose some water around the catheter per urethra while having a bowel movement this morning. He was seen through the ED yesterday with Marquez catheter problems. He had mild to moderate hematuria. Current Marquez catheter has been in for about a week. It is a 14-gauge and usually has a 16- gauge catheter in place. I suspect it is positional and obviously getting kinked not allowing urine to flow properly from the bladder into the urinary bag. Benign abdominal exam. Plan we will change out the urinary catheter this morning and place a 16-gauge coud tip catheter in the hopes that this will not rub on the inner wall of the bladder to cause hematuria and drain more effectively. He will be given Levaquin 500 mg p.o. to prevent bacteremia from catheter change. - Re-Assessments/Exams Free Text/Narrative Re-Assessment/Exam: 03/30/21 12:13 16-gauge Marquez catheter placed with coud tip without problems. Draining clear urine at present. Patient will be discharged home. He will return to the ED if any further problems occur. Departure - Departure Time of Disposition: 12:14 Disposition: Home, Self-Care 01 Condition: Fair Clinical Impression: Marquez catheter problem Qualifiers: Encounter type: initial encounter Qualified Code(s): T83.9XXA - Unspecified complication of genitourinary prosthetic device, implant and graft, initial encounter - Discharge Information *PRESCRIPTION DRUG MONITORING PROGRAM REVIEWED*: Not Applicable *COPY OF PRESCRIPTION DRUG MONITORING REPORT IN PATIENT MICHAEL: Not Applicable Referrals: Yaima Wall PA-C [Primary Care Provider] - Forms: ED Department Discharge Additional Instructions: Evaluation in the emergency room today in regards to Marquez catheter problems. Awoke this morning with no urine in the drainage bag. Even walking around did not seem to allow appropriate drainage. It appears that drainage did occur while seated in vehicle in route to [facility] as there was 1200 mils of urine in the collection bag. Since you were having continuous problems with the Marquez catheter it was elected to change it out and place a slightly larger Marquez catheter and a 16-gauge coud tip catheter in place which will hopefully promote better drainage. Of course return to the emergency room if you have any further problems or follow-up with your primary care provider in [place]. Sepsis Event Note (ED) - Focused Exam Vital Signs: Vital Signs Temp Pulse Resp BP Pulse Ox 03/30/21 12:02 36.6 C 93 18 135/87 96 - My Orders Last 24 Hours: My Active Orders 03/30/21 11:30 Marquez Catheter Insertion [Insert Urinary Catheter] [OM.PC] Q24H - Assessment/Plan Last 24 Hours: My Active Orders 03/30/21 11:30 Marquez Catheter Insertion [Insert Urinary Catheter] [OM.PC] Q24H
[2021-03-30] MEDS ORDERED: Levofloxacin 250 MG Tab PO ONE (11:31)
[2021-03-30 12:09] VITALS: BP 135/87; PULSE 93
== END 2021-03-30 12:30 | disposition home or self-care (01) ==
LOC: JD.ED 10:38
DX: T83.098A Other mechanical complication of other urinary catheter, initial encounter (principal); I48.91 Unspecified atrial fibrillation; I10 Essential (primary) hypertension; Z88.0 Allergy status to penicillin; Z88.1 Allergy status to other antibiotic agents; Z79.82 Long term (current) use of aspirin; Z79.899 Other long term (current) drug therapy
CPT/HCPCS: 51702; 99283; A9270

== ENCOUNTER 2021-04-27 08:31 | Emergency (ER) | payer MEDICARE, OTHER ==
[2021-04-27 08:47] VITALS: BP 127/73; PULSE 98
[2021-04-27] MEDS ORDERED: Lidocaine 2% Jelly 10 ML Urojet MUCMEM ONE (08:56)
--- NOTE | 2021-04-27 10:52 | EDM.PDOC ---
ED HPI GENERAL MEDICAL PROBLEM - General Chief Complaint: Genitourinary Problem Stated Complaint: CATHETER ISSUES Time Seen by Provider: 04/27/21 08:40 Source of Information: Reports: Patient History Limitations: Reports: No Limitations - History of Present Illness INITIAL COMMENTS - FREE TEXT/NARRATIVE: The patient presents for a botello cath change. He says it has been in over a month. He also is worried he may have a UTI. He has some burning around the cath and the last time that happened he had a bladder infection. He also has some swelling in his legs. He was put on some lasix about a month ago and that helped. For the past few weeks he has had more swelling. He has no chest pain and no shortness of breath. He has a history of pleural effusion on the right lung and a couple weeks ago he had 2.5L removed. He has been breathing good ever since. He has no fever, chills, cough, abdominal pain, nausea or vomiting. Onset: Gradual Duration: Day(s): Severity: Moderate Improves with: Reports: None Worsens with: Reports: None Associated Symptoms: Reports: No Other Symptoms - Related Data Allergies Allergy/AdvReac Type Severity Reaction Status Date / Time amoxicillin [From Augmentin] Allergy Severe Other Verified 04/27/21 08:47 clavulanic acid Allergy Severe Other Verified 04/27/21 08:47 [From Augmentin] Home Meds: Home Meds Carvedilol [Coreg] 6.25 mg PO BID #60 tablet 03/07/15 [Rx] Cod Liver Oil 1 cap PO DAILY 03/16/20 [History] Magnesium 600 mg PO DAILY 03/16/20 [History] Selenium 1 cap PO DAILY 03/16/20 [History] Ubidecarenone [Co Q-10] 300 mg PO DAILY 03/16/20 [History] Vitamin A 1 cap PO DAILY 03/16/20 [History] Vitamin B Complex 125 mg PO DAILY 03/16/20 [History] Vitamin E (Dl,Tocopheryl Acet) [Vitamin E] 1,000 units PO DAILY 03/16/20 [History] Zinc 50 mg PO DAILY 03/16/20 [History] Furosemide [Lasix] 20 mg PO DAILY #10 tab 03/29/21 [Rx] Furosemide [Lasix] 20 mg PO DAILY #40 tab 04/27/21 [Rx] Tamsulosin HCl [Flomax] 0.4 mg PO DAILY 04/27/21 [History] cephALEXin [Keflex] 500 mg PO BID #14 cap 04/27/21 [Rx] cephALEXin [Keflex] 500 mg PO BID #14 cap 04/27/21 [Rx] Past Medical History Cardiovascular History: Reports: Afib, Hypertension Gastrointestinal History: Reports: Other (See Below) Other Gastrointestinal History: abdominal pain-chronic; Genitourinary History: Reports: UTI, Recurrent, Other (See Below) Other Genitourinary History: catheter Neurological History: Reports: Headaches, Chronic Endocrine/Metabolic History: Reports: Other (See Below) Other Endocrine/Metabolic History: pre diabetic Oncologic (Cancer) History: Reports: Liver Other Oncologic History: diagnosed about 4 yrs ago - Infectious Disease History Infectious Disease History: Reports: Novel Coronavirus - Past Surgical History HEENT Surgical History: Reports: Cataract Surgery, Tonsillectomy GI Surgical History: Reports: Appendectomy Social & Family History - Family History Family Medical History: No Pertinent Family History - Tobacco Use Tobacco Use Status *Q: Never Tobacco User Second Hand Smoke Exposure: No - Caffeine Use Caffeine Use: Reports: Coffee Caffeine Use Comment: occasionally - Recreational Drug Use Recreational Drug Use: No - Living Situation & Occupation Living situation: Reports: Occupation: Employed (Self-employed) ED ROS GENERAL - Review of Systems Review Of Systems: See Below Constitutional: Reports: No Symptoms HEENT: Reports: No Symptoms Respiratory: Reports: No Symptoms Cardiovascular: Reports: No Symptoms Endocrine: Reports: No Symptoms GI/Abdominal: Reports: No Symptoms : Reports: Other (Botello cath in with some burning around the cath) Musculoskeletal: Reports: No Symptoms ED EXAM, GI/ABD - Physical Exam Exam: See Below Exam Limited By: No Limitations General Appearance: Alert, No Apparent Distress Ears: Normal External Exam Nose: Normal Inspection Head: Atraumatic, Normocephalic Neck: Normal Inspection Respiratory/Chest: No Respiratory Distress, Lungs Clear, Normal Breath Sounds Cardiovascular: Regular Rate, Rhythm, No Edema, No Murmur GI/Abdominal Exam: Soft, Non-Tender, No Organomegaly, No Mass Back Exam: Normal Inspection Extremities: Other (bilateral lower leg edema) Course - Vital Signs Last Recorded V/S: Last Vital Signs Temp 98.0 F 04/27/21 08:46 Pulse 98 08/28/21 08:46 Resp 18 04/27/21 08:46 BP 127/73 04/27/21 08:46 Pulse Ox 96 04/27/21 08:46 - Orders/Labs/Meds Orders: Active Orders 24 hr Category Date Time Status Cardiac Monitoring [RC] . DIRECTED Care 04/27/21 09:03 Active Insert Botello Catheter [Insert Urinary Catheter] [OM.PC] Care 04/27/21 09:15 Ordered Q24H Urinary Catheter Assessment [RC] ASDIRECTED Care 04/27/21 09:04 Active Chest 1V Frontal [CR] Stat Exams 04/27/21 09:03 Taken CULTURE URINE [MREF] Stat Lab 04/27/21 09:19 Received Labs: Laboratory Tests 04/27/21 04/27/21 04/27/21 Range/Units 09:19 09:35 09:35 WBC 6.33 (4.23-9.07) K/mm3 RBC 3.89 L (4.63-6.08) M/mm3 Hgb 12.2 L (13.7-17.5) gm/dl Hct 36.5 L (40.1-51.0) % MCV 93.8 H (79.0-92.2) fl MCH 31.4 (25.7-32.2) pg MCHC 33.4 (32.2-35.5) g/dl RDW Std Deviation 46.1 H (35.1-43.9) fL Plt Count 163 (163-337) K/mm3 MPV 9.0 L (9.4-12.3) fl Neut % (Auto) 60.4 (34.0-67.9) % Lymph % (Auto) 21.0 L (21.8-53.1) % [place] % (Auto) 14.4 H (5.3-12.2) % Eos % (Auto) 3.6 (0.8-7.0) Baso % (Auto) 0.6 (0.1-1.2) % Neut # (Auto) 3.82 (1.78-5.38) K/mm3 Lymph # (Auto) 1.33 (1.32-3.57) K/mm3 [place] # (Auto) 0.91 H (0.30-0.82) K/mm3 Eos # (Auto) 0.23 (0.04-0.54) K/mm3 Baso # (Auto) 0.04 (0.01-0.08) K/mm3 Sodium 139 (136-145) mEq/L Potassium 4.3 (3.5-5.1) mEq/L Chloride 105 (98-107) mEq/L Carbon Dioxide 26 (21-32) mEq/L Anion Gap 12.3 (5-15) BUN 12 (7-18) mg/dL Creatinine 1.0 (0.7-1.3) mg/dL Est Cr Clr Drug Dosing 69.91 mL/min Estimated GFR (MDRD) > 60 (>60) mL/min BUN/Creatinine Ratio 12.0 L (14-18) Glucose 275 H (70-99) mg/dL Calcium 8.1 L (8.5-10.1) mg/dL Total Bilirubin 0.8 (0.2-1.0) mg/dL AST 56 H (15-37) U/L ALT 24 (16-63) U/L Alkaline Phosphatase 111 (46-116) U/L NT-Pro-B Natriuret Pep (0-450) pg/mL Total Protein 6.9 (6.4-8.2) g/dl Albumin 2.5 L (3.4-5.0) g/dl Globulin 4.4 gm/dL Albumin/Globulin Ratio 0.6 L (1-2) Urine Color Brown H (Yellow) Urine Appearance Cloudy H (Clear) Urine pH 7.0 (5.0-8.0) Ur Specific [place] 1.025 (1.005-1.030) Urine Protein 2+ H (Negative) Urine Glucose (UA) Negative (Negative) Urine Ketones Negative (Negative) Urine Occult Blood 3+ H (Negative) Urine Nitrite Positive H (Negative) Urine Bilirubin 1+ H (Negative) Urine Urobilinogen 1.0 (0.2-1.0) Ur Leukocyte Esterase 1+ H (Negative) Urine RBC Too numerous to cnt H (0-5) /hpf Urine WBC 10-20 H (0-5) /hpf Ur Epithelial Cells Not seen (0-5) /hpf Urine Bacteria Moderate H (FEW) /hpf Urine Mucus Rare (FEW) /hpf 04/27/ Range/Units 09:35 WBC (4.23-9.07) K/mm3 RBC (4.63-6.08) M/mm3 Hgb (13.7-17.5) gm/dl Hct (40.1-51.0) % MCV (79.0-92.2) fl MCH (25.7-32.2) pg MCHC (32.2-35.5) g/dl RDW Std Deviation (35.1-43.9) fL Plt Count (163-337) K/mm3 MPV (9.4-12.3) fl Neut % (Auto) (34.0-67.9) % Lymph % (Auto) (21.8-53.1) % [place] % (Auto) (5.3-12.2) % Eos % (Auto) (0.8-7.0) Baso % (Auto) (0.1-1.2) % Neut # (Auto) (1.78-5.38) K/mm3 Lymph # (Auto) (1.32-3.57) K/mm3 [place] # (Auto) (0.30-0.82) K/mm3 Eos # (Auto) (0.04-0.54) K/mm3 Baso # (Auto) (0.01-0.08) K/mm3 Sodium (136-145) mEq/L Potassium (3.5-5.1) mEq/L Chloride (98-107) mEq/L Carbon Dioxide (21-32) mEq/L Anion Gap (5-15) BUN (7-18) mg/dL Creatinine (0.7-1.3) mg/dL Est Cr Clr Drug Dosing mL/min Estimated GFR (MDRD) (>60) mL/min BUN/Creatinine Ratio (14-18) Glucose (70-99) mg/dL Calcium (8.5-10.1) mg/dL Total Bilirubin (0.2-1.0) mg/dL AST (15-37) U/L ALT (16-63) U/L Alkaline Phosphatase (46-116) U/L NT-Pro-B Natriuret Pep 581 H (0-450) pg/mL Total Protein (6.4-8.2) g/dl Albumin (3.4-5.0) g/dl Globulin gm/dL Albumin/Globulin Ratio (1-2) Urine Color (Yellow) Urine Appearance (Clear) Urine pH (5.0-8.0) Ur Specific [place] (1.005-1.030) Urine Protein (Negative) Urine Glucose (UA) (Negative) Urine Ketones (Negative) Urine Occult Blood (Negative) Urine Nitrite (Negative) Urine Bilirubin (Negative) Urine Urobilinogen (0.2-1.0) Ur Leukocyte Esterase (Negative) Urine RBC (0-5) /hpf Urine WBC (0-5) /hpf Ur Epithelial Cells (0-5) /hpf Urine Bacteria (FEW) /hpf Urine Mucus (FEW) /hpf Meds: Medications Discontinued Medications Generic Name Dose Route Start Last Admin Trade Name Freq PRN Reason Stop Dose Admin Lidocaine HCl 10 ml 04/27/21 08:56 04/27/21 09:07 Lidocaine 2% Jelly 10 Ml Urojet MUCMEM 04/27/21 08:57 10 ml ONETIME ONE Administration - Re-Assessments/Exams Free Text/Narrative Re-Assessment/Exam: 04/27/21 10:52 I ordered a botello cath change, UA, labs and a CXR. His CXR shows a right pleural effusion. His Hgb was low at 12.2. His glucose was 275. His AST is elevated 56. His BNP is elevated at 581. His UA shows a UTI. I will get him on keflex and double up on his lasix for 5 days. Departure - Departure Time of Disposition: 10:55 Disposition: Home, Self-Care 01 Condition: Good Clinical Impression: UTI, Urinary tract infectious disease, Leg edema - Discharge Information *PRESCRIPTION DRUG MONITORING PROGRAM REVIEWED*: Not Applicable *COPY OF PRESCRIPTION DRUG MONITORING REPORT IN PATIENT MICHAEL: Not Applicable Prescriptions: cephALEXin [Keflex] 500 mg PO BID #14 cap cephALEXin [Keflex] 500 mg PO BID #14 cap Furosemide [Lasix] 20 mg PO DAILY #40 tab Referrals: Yaima Wall PA-C [Primary Care Provider] - 1 Week Additional Instructions: Take the keflex 2 times per day for 7 days. Take the lasix 40mg or 2 pills daily for 5 days and then go back to 20mg or 1 pill daily after. Try to elevate your legs above your heart as much as you can for a few days. Put some LORENA wraps on your legs for a few days. Follow up with Swathi within a week. Please return if you are worse. Sepsis Event Note (ED) - Focused Exam Vital Signs: Vital Signs Temp Pulse Resp BP Pulse Ox 04/27/21 08:46 98.0 F 98 18 127/73 96 - My Orders Last 24 Hours: My Active Orders 04/27/21 09:03 Cardiac Monitoring [RC] . DIRECTED Chest 1V Frontal [CR] Stat 04/27/21 09:04 Urinary Catheter Assessment [RC] ASDIRECTED 04/27/21 09:15 Insert Botello Catheter [Insert Urinary Catheter] [OM.PC] Q24H 04/27/21 09:19 CULTURE URINE [MREF] Stat - Assessment/Plan Last 24 Hours: My Active Orders 04/27/21 09:03 Cardiac Monitoring [RC] . DIRECTED Chest 1V Frontal [CR] Stat 04/27/21 09:04 Urinary Catheter Assessment [RC] ASDIRECTED 04/27/21 09:15 Insert Botello Catheter [Insert Urinary Catheter] [OM.PC] Q24H 04/27/21 09:19 CULTURE URINE [MREF] Stat
--- NOTE | 2021-04-28 09:17 | CR ---
Chest: AP view of the chest was obtained. Comparison: Prior chest x-ray 03/21/21. Right-sided pleural effusion is seen which is stable from prior study. Small left-sided pleural effusion is noted which is stable. Mild right basilar atelectasis is seen. Heart is mildly enlarged. Mild pulmonary vascular congestion is noted. Upper mediastinum is normal. Scattered degenerative change is noted within the spine. Impression: 1. Bilateral pleural effusions with mild right basilar atelectasis. Findings are stable from prior study. 2. Heart is enlarged. Mild pulmonary vascular congestion is noted. Diagnostic code #3
== END 2021-04-27 11:28 | disposition home or self-care (01) ==
LOC: JD.ED 08:31
DX: N39.0 Urinary tract infection, site not specified (principal); R60.0 Localized edema; I48.91 Unspecified atrial fibrillation; I10 Essential (primary) hypertension; Z88.0 Allergy status to penicillin; Z86.16 Personal history of COVID-19
CPT/HCPCS: 36415; 51702; 71045; 71045-26; 80053; 81001; 83880; 85025; 87086; 99283; 99283-25

== ENCOUNTER 2021-05-21 03:11 | Emergency (ER) | payer MEDICARE, OTHER ==
[2021-05-21 03:43] VITALS: BP 146/92; PULSE 104
--- NOTE | 2021-05-21 04:06 | EDM.PDOC ---
ED HPI GENERAL MEDICAL PROBLEM - General Chief Complaint: Genitourinary Problem Stated Complaint: CATHETER ISSUE Time Seen by Provider: 05/21/21 03:57 - History of Present Illness INITIAL COMMENTS - FREE TEXT/NARRATIVE: 75-year-old male presents the emergency room with his catheter not working right. Patient has not had much urine output over the last day and a half. And he started to get some lower abdominal discomfort with this. Patient has a significant history of liver cancer and has recurrent pulmonary effusions to get drained. He has had this catheter for a while it does not need to be changed. He has not had any fevers or chills. Bladder Pain Score (Numeric/FACES): 10 - Related Data Allergies Allergy/AdvReac Type Severity Reaction Status Date / Time amoxicillin [From Augmentin] Allergy Severe Other Verified 04/27/21 08:47 clavulanic acid Allergy Severe Other Verified 05/21/21 03:42 [From Augmentin] Home Meds: Home Meds Carvedilol [Coreg] 6.25 mg PO BID #60 tablet 03/07/15 [Rx] Cod Liver Oil 1 cap PO DAILY 03/16/20 [History] Magnesium 600 mg PO DAILY 03/16/20 [History] Selenium 1 cap PO DAILY 03/16/20 [History] Ubidecarenone [Co Q-10] 300 mg PO DAILY 03/16/20 [History] Vitamin A 1 cap PO DAILY 03/16/20 [History] Vitamin B Complex 125 mg PO DAILY 03/16/20 [History] Vitamin E (Dl,Tocopheryl Acet) [Vitamin E] 1,000 units PO DAILY 03/16/20 [History] Zinc 50 mg PO DAILY 03/16/20 [History] Furosemide [Lasix] 20 mg PO DAILY #40 tab 04/27/21 [Rx] Tamsulosin HCl [Flomax] 0.4 mg PO DAILY 04/27/21 [History] Past Medical History Cardiovascular History: Reports: Afib, Hypertension Gastrointestinal History: Reports: Other (See Below) Other Gastrointestinal History: abdominal pain-chronic; Genitourinary History: Reports: UTI, Recurrent, Other (See Below) Other Genitourinary History: catheter Neurological History: Reports: Headaches, Chronic Endocrine/Metabolic History: Reports: Other (See Below) Other Endocrine/Metabolic History: pre diabetic Oncologic (Cancer) History: Reports: Liver Other Oncologic History: diagnosed about 4 yrs ago - Infectious Disease History Infectious Disease History: Reports: Novel Coronavirus - Past Surgical History HEENT Surgical History: Reports: Cataract Surgery, Tonsillectomy GI Surgical History: Reports: Appendectomy Social & Family History - Family History Family Medical History: No Pertinent Family History - Tobacco Use Tobacco Use Status *Q: Never Tobacco User - Caffeine Use Caffeine Use: Reports: Coffee Caffeine Use Comment: occasionally - Living Situation & Occupation Living situation: Reports: Occupation: Employed (Self-employed) ED ROS GENERAL - Review of Systems Review Of Systems: See Below Constitutional: Reports: No Symptoms Respiratory: Reports: Cough (He has a frequent cough this is a chronic conditi on). Denies: Shortness of Breath Cardiovascular: Reports: No Symptoms GI/Abdominal: Reports: Distension. Denies: Abdominal Pain ED EXAM, GENERAL - Physical Exam Exam: See Below Exam Limited By: No Limitations General Appearance: Alert, No Apparent Distress Respiratory/Chest: No Respiratory Distress, Lungs Clear, Normal Breath Sounds Cardiovascular: Normal Peripheral Pulses, No Edema, No Murmur GI/Abdominal: Normal Bowel Sounds, Soft, Hepatomegaly, Other Course - Vital Signs Last Recorded V/S: Last Vital Signs Temp 36.8 C 05/21/21 03:39 Pulse 104 H 05/21/21 03:39 Resp 18 05/21/21 03:39 BP 146/92 H 05/21/21 03:39 Pulse Ox 95 05/21/21 03:39 - Re-Assessments/Exams Free Text/Narrative Re-Assessment/Exam: 05/21/21 04:09 Prior to my evaluation of patient nursing was able to free up his catheter with better than a liter of returned urine. And it is flowing well at this time the patient feels much better Departure - Departure Time of Disposition: 04:10 Disposition: Home, Self-Care 01 Clinical Impression: Marquez catheter problem Qualifiers: Encounter type: initial encounter Qualified Code(s): T83.9XXA - Unspecified complication of genitourinary prosthetic device, implant and graft, initial encounter - Discharge Information Referrals: Yaima Wall PA-C [Primary Care Provider] - Additional Instructions: Return to the emergency room with any questions problems or worsening symptoms. Follow-up with your regular healthcare providers as scheduled. Sepsis Event Note (ED) - Evaluation Sepsis Screening Result: No Definite Risk - Focused Exam Vital Signs: Vital Signs Temp Pulse Resp BP Pulse Ox 05/21/21 03:39 36.8 C 104 H 18 146/92 H 95
== END 2021-05-21 04:56 | disposition home or self-care (01) ==
LOC: JD.ED 03:11
DX: T83.091A Other mechanical complication of indwelling urethral catheter, initial encounter (principal); I10 Essential (primary) hypertension; Z88.0 Allergy status to penicillin; Z86.16 Personal history of COVID-19
CPT/HCPCS: 99283

== ENCOUNTER 2021-06-03 14:09 | Emergency (ER) | payer MEDICARE, OTHER ==
[2021-06-03 15:55] VITALS: BP 154/96; PULSE 116
[2021-06-03] MEDS ORDERED: Lidocaine 2% Jelly 10 ML Urojet MUCMEM ONE (17:10)
--- NOTE | 2021-06-03 17:37 | EDM.PDOC ---
ED HPI GENERAL MEDICAL PROBLEM - General Chief Complaint: Genitourinary Problem Stated Complaint: CATHETER COMPLAINT Time Seen by Provider: 06/03/21 17:01 Source of Information: Reports: Patient, Family History Limitations: Reports: No Limitations - History of Present Illness INITIAL COMMENTS - FREE TEXT/NARRATIVE: 75-year-old male presents the emergency department with complaints of urinary retention. Patient has had a Marquez catheter for quite some time due to urinary retention. He states that on Thursday morning, 2 days ago, he was having issues with it not draining correctly and wanted to see if he could void without needing the Marquez catheter so he had his remove his catheter. He states he has only voided a very small amount since then. He does complain of urinary distention and suprapubic pain. Denies any recent fever, chills, nausea, vomiting or diarrhea. Bladder Pain Score (Numeric/FACES): 8 - Related Data Allergies Allergy/AdvReac Type Severity Reaction Status Date / Time amoxicillin [From Augmentin] Allergy Severe Other Verified 06/03/21 17:03 clavulanic acid Allergy Severe Other Verified 06/03/21 17:03 [From Augmentin] Home Meds: Home Meds Carvedilol [Coreg] 6.25 mg PO BID #60 tablet 03/07/15 [Rx] Cod Liver Oil 1 cap PO DAILY 03/16/20 [History] Magnesium 600 mg PO DAILY 03/16/20 [History] Selenium 1 cap PO DAILY 03/16/20 [History] Ubidecarenone [Co Q-10] 300 mg PO DAILY 03/16/20 [History] Vitamin A 1 cap PO DAILY 03/16/20 [History] Vitamin B Complex 125 mg PO DAILY 03/16/20 [History] Vitamin E (Dl,Tocopheryl Acet) [Vitamin E] 1,000 units PO DAILY 03/16/20 [History] Zinc 50 mg PO DAILY 03/16/20 [History] Furosemide [Lasix] 20 mg PO DAILY #40 tab 04/27/21 [Rx] Tamsulosin HCl [Flomax] 0.4 mg PO DAILY 04/27/21 [History] Sulfamethoxazole/Trimethoprim [Bactrim Ds Tablet] 1 each PO BID #13 tablet 06/03/21 [Rx] Sulfamethoxazole/Trimethoprim [Bactrim Ds Tablet] 1 each PO BID #13 tablet 06/03/21 [Rx] Past Medical History Cardiovascular History: Reports: Afib, Hypertension Gastrointestinal History: Reports: Other (See Below) Other Gastrointestinal History: abdominal pain-chronic; Genitourinary History: Reports: UTI, Recurrent, Other (See Below) Other Genitourinary History: urinary retention Neurological History: Reports: Headaches, Chronic Endocrine/Metabolic History: Reports: Other (See Below) Other Endocrine/Metabolic History: pre diabetic Oncologic (Cancer) History: Reports: Liver Other Oncologic History: diagnosed about 4 yrs ago - Infectious Disease History Infectious Disease History: Reports: Novel Coronavirus - Past Surgical History HEENT Surgical History: Reports: Cataract Surgery, Tonsillectomy GI Surgical History: Reports: Appendectomy Social & Family History - Family History Family Medical History: No Pertinent Family History - Tobacco Use Tobacco Use Status *Q: Never Tobacco User - Caffeine Use Caffeine Use: Reports: None Caffeine Use Comment: occasionally - Recreational Drug Use Recreational Drug Use: No - Living Situation & Occupation Living situation: Reports: Occupation: Employed (Self-employed) ED ROS GENERAL - Review of Systems Review Of Systems: Comprehensive ROS is negative, except as noted in HPI. ED EXAM, RENAL/ - Physical Exam Exam: See Below Exam Limited By: No Limitations General Appearance: Alert, WD/WN, Mild Distress Ears: Normal External Exam, Hearing Grossly Normal Nose: Normal Inspection Throat/Mouth: Normal Inspection, Normal Lips, Normal Voice, No Airway Compromise Head: Atraumatic Neck: Normal Inspection Respiratory/Chest: No Respiratory Distress, No Accessory Muscle Use Cardiovascular: Normal Peripheral Pulses, Regular Rate, Rhythm GI/Abdominal: Other (Suprapubic tenderness) (Male) Exam: Deferred Rectal (Males) Exam: Deferred Back Exam: Normal Inspection Extremities: Normal Inspection Neurological: Alert, Oriented, Normal Cognition Psychiatric: Normal Affect, Normal Mood Skin Exam: Warm, Dry, Intact, Normal Color, No Rash Lymphatic: No Adenopathy Course - Vital Signs Text/Narrative:: As stated above, patient presents after having removed his Marquez catheter approximately 2 days ago. Physical exam is essentially unremarkable and he is hemodynamically stable other than being slightly tachycardic at a rate of 116. I suspect this is likely due to discomfort. I have ordered for nursing to do a bladder scan on the patient. We will then place a Marquez catheter and get a urinalysis. Last Recorded V/S: Last Vital Signs Temp 98.4 F 06/03/21 15:52 Pulse 116 H 06/03/21 15:52 Resp 20 06/03/21 15:52 BP 154/96 H 06/03/21 15:52 Pulse Ox 93 L 06/03/21 15:52 - Orders/Labs/Meds Orders: Active Orders 24 hr Category Date Time Status Bladder Scan [RC] ASDIRECTED Care 06/03/21 17:03 Active Insert Marquez Catheter [Insert Urinary Catheter] [OM.PC] Care 06/03/21 17:15 Ordered Q24H Urinary Catheter Assessment [RC] ASDIRECTED Care 06/03/21 17:04 Active CULTURE URINE [MREF] Stat Lab 06/03/21 17:40 Received Labs: Laboratory Tests 06/03/21 Range/Units 17:40 Urine Color Yellow (Yellow) Urine Appearance Cloudy H (Clear) Urine pH 6.0 (5.0-8.0) Ur Specific [place] > or = 1.030 (1.005-1.030) Urine Protein 2+ H (Negative) Urine Glucose (UA) Negative (Negative) Urine Ketones Negative (Negative) Urine Occult Blood 2+ H (Negative) Urine Nitrite Negative (Negative) Urine Bilirubin Negative (Negative) Urine Urobilinogen 0.2 (0.2-1.0) Ur Leukocyte Esterase 2+ H (Negative) Urine RBC 10-20 H (0-5) /hpf Urine WBC Too numerous to cnt H (0-5) /hpf Ur Squamous Epith Cells Not seen (0-5) /hpf Urine Bacteria Many H (FEW) /hpf Urine Mucus Not seen (FEW) /hpf Meds: Medications Discontinued Medications Generic Name Dose Route Start Last Admin Trade Name Freq PRN Reason Stop Dose Admin Lidocaine HCl 10 ml 06/03/21 17:10 06/03/21 17:15 Lidocaine 2% Jelly 10 Ml Urojet MUCMEM 06/03/21 17:11 10 ml ONETIME ONE Administration Trimethoprim/Sulfamethoxazole 1 tab 06/03/21 19:02 Sulfamethoxazole/Trimethoprim 800-160 Mg Tab PO 06/03/21 19:03 ONETIME ONE - Re-Assessments/Exams Free Text/Narrative Re-Assessment/Exam: 06/03/21 20:15 Marquez catheter was placed and 1100 mL of cadena-colored urine initially returned. Patient reports feeling much better. 06/03/21 20:15 Urinalysis reveals 2+ protein, 2+ occult blood, 2+ leukocyte esterase, urine RBC 10-20, urine WBC too numerous to count, many bacteria. Patient will be started on Bactrim DS 1 tab. I have sent prescription to his pharmacy for the remaining doses. Culture is pending. Departure - Departure Time of Disposition: 20:16 Disposition: Home, Self-Care 01 Condition: Good Clinical Impression: Retention of urine, UTI, Urinary tract infectious disease - Discharge Information Prescriptions: Sulfamethoxazole/Trimethoprim [Bactrim Ds Tablet] 1 each PO BID #13 tablet Sulfamethoxazole/Trimethoprim [Bactrim Ds Tablet] 1 each PO BID #13 tablet Referrals: Yaima Wall PA-C [Primary Care Provider] - Forms: ED Department Discharge Additional Instructions: You were seen in the emergency department this evening with urinary retention. Marquez catheter was placed and drained 1100 mL of urine initially. Urinalysis was completed and it did indicate that you have a urinary tract infection. While in the emergency department you received an antibiotic called Bactrim DS. You will need to take this medication twice daily for the next 7 days. Prescription has been sent to [facility] pharmacy the remainder of the antibiotics. Should your condition worsen or change, do not hesitate returning to the emergency department. Sepsis Event Note (ED) - Focused Exam Vital Signs: Vital Signs Temp Pulse Resp BP Pulse Ox 06/03/21 15:52 98.4 F 116 H 20 154/96 H 93 L - My Orders Last 24 Hours: My Active Orders 06/03/21 17:03 Bladder Scan [RC] ASDIRECTED 06/03/21 17:04 Urinary Catheter Assessment [RC] ASDIRECTED 06/03/21 17:15 Insert Marquez Catheter [Insert Urinary Catheter] [OM.PC] Q24H 06/03/21 17:40 CULTURE URINE [MREF] Stat - Assessment/Plan Last 24 Hours: My Active Orders 06/03/21 17:03 Bladder Scan [RC] ASDIRECTED 06/03/21 17:04 Urinary Catheter Assessment [RC] ASDIRECTED 06/03/21 17:15 Insert Marquez Catheter [Insert Urinary Catheter] [OM.PC] Q24H 06/03/21 17:40 CULTURE URINE [MREF] Stat
[2021-06-03] MEDS ORDERED: Sulfamethoxazole/Trimethoprim 800-160 MG Tab PO ONE (19:02)
== END 2021-06-03 20:50 | disposition home or self-care (01) ==
LOC: JD.ED 14:09
DX: R33.9 Retention of urine, unspecified (principal); N39.0 Urinary tract infection, site not specified; I48.91 Unspecified atrial fibrillation; I10 Essential (primary) hypertension; Z88.0 Allergy status to penicillin; Z88.8 Allergy status to other drugs, medicaments and biological substances; Z79.899 Other long term (current) drug therapy
CPT/HCPCS: 51702; 51798; 81001; 87086; 87088; 87186; 99284; A9270

== ENCOUNTER 2021-09-21 01:06 | Emergency (ER) | payer MEDICARE, OTHER ==
[2021-09-21 01:30] VITALS: BP 118/87; PULSE 95
[2021-09-21] MEDS ORDERED: Lidocaine 2% Jelly 10 ML Urojet MUCMEM ONE (01:46)
== END 2021-09-21 02:30 | disposition home or self-care (01) ==
LOC: JD.ED 01:06
DX: T83.098A Other mechanical complication of other urinary catheter, initial encounter (principal)
CPT/HCPCS: 51702; 99282-25

== ENCOUNTER 2021-11-19 03:59 | Emergency (ER) | payer MEDICARE, OTHER ==
[2021-11-19] MEDS ORDERED: Lidocaine 2% Jelly 10 ML Urojet ONE (04:13)
[2021-11-19] MEDS ORDERED: Lidocaine 2% Jelly 10 ML Urojet MUCMEM ONE (04:14)
[2021-11-19 04:19] VITALS: BP 156/108; PULSE 118
== END 2021-11-19 05:00 | disposition home or self-care (01) ==
LOC: JD.ED 03:59
DX: R33.9 Retention of urine, unspecified (principal); I48.91 Unspecified atrial fibrillation; I10 Essential (primary) hypertension; Z88.0 Allergy status to penicillin; Z79.899 Other long term (current) drug therapy
CPT/HCPCS: 51702; 81001; 99284; 99284-25